=== PATIENT | male | born 1950 | race Caucasian/White ===

== ENCOUNTER 2016-05-02 20:45 | Inpatient (IN) | payer MEDICARE, BC ==
[~2016-05-02] VITALS: Ht 182.9 cm; Wt 66.0 kg
[~2016-05-02 20:45] MED LIST: ARMOUR THYROID60 MG PO; ATIVAN0.5 MG PO; AVELOX400 MG PO; BACTRIM DS 8001 TAB PO; BENADRYL25 M2 PO; CALCIUM 500500 M2 PT; CARDURA 2MG2 MG PO; CEFDINIR250 MG/5 M PEG; CEFEPIME1 G1 IV; CEFTAZIDIME; CEFTIN250 MG/5 M PO; CELEXA10 MG PO; CIPRO 500MG TA500 MG PO; CLEOCIN 751500 MG/10 PEG; CLEOCIN HC150 MG/CAP PO; COPAXONE; CORGARD 40M40 MG/TAB PO; CORGARD20 MG PO; CORGARD40 MG PO; DARVOCET N 101 UDTAB PO; DEPAKENE 250 MG/1 ML PEG; DEPAKOTE 250MG250 MG PO; DEPAKOTE DR500 MG PO; DEPAKOTE ER 50500 MG PO; DEPAKOTE500 M2 PO; DIGESTIVE ENZYM1 TAB PO; DOXYCYCLINE 10100 MG PO; FAMILY PHARMACY99 MG PT; FIORICET W/CODE1 CA1 PO; LABETALOL; LEVAQUIN 2250 MG/TAB PO; LEVAQUIN 250MG250 MG PO; LEVAQUIN 5500 MG/101 IV; LEVAQUIN 5500 MG/TA1 PEG; LEVAQUIN 5500 MG/TA1 PO; LEVAQUIN 5500 MG/TAB PO; LEVAQUIN 750MG750 M1 PO; LEVAQUIN 7750 MG/151 IV; MILK THISTLE150 MG PO; MULTIPLE VITAMI1 CAP PO; MVI PO; NADOLOL PO; NADOLOL20 MG PO; PHENERGAN 25 TA25 MG PO; PIPERACILLIN IV; ROBINUL1 MG PO; SEPTRA DS 8001 TAB PO; SILYMARIN1 POW PT; TAZOBACTAM IV; THYROID PO; TRAMADOL50 MG PO; TRANSDERM-0.5 MG/21 TD; TYLENOL 325MG325 MG PO; TYLENOL 500MG500 MG PO; VALPROIC ACID250 MG PO; VIT B-6100 MG PO; VITAMIN B COMPL1 SGL PT; VITAMIN C500 MG PT; VITAMIN D32000 I1 PO; VITAMIN D5000 IU PT; Z-BEC1 TAB PO; ZANTAC150 MG PO; ZINC10 M1 PT; ZOCOR 20MG20 MG PO; [UNRECOGNIZED DRUG - CODE] PO; [UNRECOGNIZED DRUG - OTHER] PEG; [UNRECOGNIZED DRUG - OTHER] PO; [UNRECOGNIZED DRUG - OTHER] PT
[2016-05-02 21:49] LABS: BASO % 0.3 % (0.0-2.0); EOS # 0.1 (0.0-0.7); EOS % 0.8 % (0-4.0); GRAN # 8.1 (1.4-6.5); HEMATOCRIT 43.5 % (42.0-52.0); HEMOGLOBIN 15.3 g/dl (13.5-18.0); LYMPH % 25.1 % (20.0-51.0); MEAN CELL VOLUME 88 fl (80.0-100.0); MEAN CORPUSCULAR HEMOGLOBIN 31 pg (27.0-31.0); MEAN CORPUSCULAR HGB CONC 35 g/dl (33.0-37.0); MEAN PLATELET VOLUME 9.2 fl (7.4-10.4); MONO # 0.7 (0.1-0.6); MONO % 5.5 % (1.7-9.3); PLATELET COUNT 196 K/mm3 (130-400); RED BLOOD COUNT 4.92 M/mm3 (4.20-5.60); REDCELL DISTRIBUTION WIDTH-CV 11.9 % (11.5-14.5); WHITE BLOOD COUNT 11.9 K/mm3 (4.8-10.8)
[2016-05-02 22:00] LABS: PH 8 (5-8); SQUAMOUS EPITHELIAL 0-2 /hpf; URINE APPEARANCE Cloudy; URINE BACTERIA Rare /hpf; URINE BILIRUBIN Negative (NEGATIVE); URINE BLOOD Negative (NEGATIVE); URINE COLOR Yellow; URINE GLUCOSE Negative (NEGATIVE); URINE KETONE Negative (NEGATIVE); URINE RBC 0-2 /hpf; URINE UROBILINOGEN Negative (NEGATIVE)
[2016-05-02 22:03] LABS: ADJUSTED CALCIUM 10.1 mg/dL (8.4-10.2); ALBUMIN 3.8 gm/dL (3.5-5.0); BILIRUBIN,TOTAL 1.5 mg/dL (0.0-1.0); C-REACTIVE PROTEIN 3.9 mg/dL (0.0-0.9); CALCIUM 9.9 mg/dL (8.4-10.2); CREATININE, serum 0.72 mg/dL (0.66-1.25); POTASSIUM 4.1 mmol/L (3.4-5.0); TOTAL PROTEIN 7.5 gm/dL (6.4-8.2)
[2016-05-02] MEDS ORDERED: GLUTATHIONE1 POW PEG (23:16)
[2016-05-02] MEDS ORDERED: MERIBIN5 MG PEG (23:18)
[2016-05-03] VITALS (7 sets, daily range): BP systolic 108–135; BP diastolic 62–92; PULSE 62–109; TEMP 97.2–99.4
[2016-05-03 04:51] LABS: BASO % 0.3 % (0.0-2.0); EOS # 0.1 (0.0-0.7); EOS % 0.6 % (0-4.0); GRAN # 6.8 (1.4-6.5); GRAN % 64.3 % (42.2-75.2); HEMOGLOBIN 14.1 g/dl (13.5-18.0); LYMPH # 2.9 (1.2-3.4); LYMPH % 27.4 % (20.0-51.0); MEAN CELL VOLUME 90 fl (80.0-100.0); MEAN CORPUSCULAR HEMOGLOBIN 31 pg (27.0-31.0); MEAN CORPUSCULAR HGB CONC 34 g/dl (33.0-37.0); MEAN PLATELET VOLUME 9.8 fl (7.4-10.4); MONO # 0.8 (0.1-0.6); MONO % 7.1 % (1.7-9.3); PLATELET COUNT 208 K/mm3 (130-400); RED BLOOD COUNT 4.58 M/mm3 (4.20-5.60); REDCELL DISTRIBUTION WIDTH-CV 11.9 % (11.5-14.5); WHITE BLOOD COUNT 10.6 K/mm3 (4.8-10.8)
[2016-05-03 05:36] LABS: CALCIUM 9.3 mg/dL (8.4-10.2); CREATININE, serum 0.54 mg/dL (0.66-1.25); POTASSIUM 3.9 mmol/L (3.4-5.0)
[2016-05-04 05:12] VITALS: BP 90/77; PULSE 82; TEMP 99.8
[2016-05-04 08:24] VITALS: BP 109/72; PULSE 75; TEMP 98.5
[2016-05-04 11:13] VITALS: BP 107/75; PULSE 73; TEMP 98.3
[2016-05-04 15:57] VITALS: BP 127/84; PULSE 58; TEMP 98.4
[2016-05-04] MEDS ORDERED: CLEOCIN 751500 MG/10 PEG (16:53)
== END 2016-05-04 18:00 | disposition home or self-care (01) | DRG 689 ==
LOC: COL.ER 20:45 → MEDICAL 22:30
PROVIDERS: Emergency Medicine; Internal Medicine
DX: N39.0 Urinary tract infection, site not specified (principal); J69.0 Pneumonitis due to inhalation of food and vomit; G35 Multiple sclerosis; N31.9 Neuromuscular dysfunction of bladder, unspecified; I10 Essential (primary) hypertension; E03.9 Hypothyroidism, unspecified; G40.909 Epilepsy, unspecified, not intractable, without status epilepticus; R53.81 Other malaise; Z93.1 Gastrostomy status; Z87.891 Personal history of nicotine dependence
CPT/HCPCS: 99222-AI; 99232-AI; 99239; J0696; J0744; J1650; J1956; J7030

== ENCOUNTER 2016-05-12 19:41 | Emergency (ER) | payer MEDICARE, BC ==
[~2016-05-12] VITALS: Ht 182.9 cm; Wt 65.0 kg
[~2016-05-12 19:41] MED LIST changes: +GLUTATHIONE1 POW PEG; +MERIBIN5 MG PEG
[2016-05-12 19:46] VITALS: BP 143/98; TEMP 98.5
[2016-05-12 20:41] VITALS: PULSE 80
== END 2016-05-12 20:42 | disposition home or self-care (01) ==
LOC: COL.ER 19:41
DX: Z43.1 Encounter for attention to gastrostomy (principal); Z46.59 Encounter for fitting and adjustment of other gastrointestinal appliance and device

== ENCOUNTER 2016-07-14 17:38 | Emergency (ER) | payer MEDICARE, BC ==
[~2016-07-14] VITALS: Ht 162.6 cm; Wt 65.9 kg
[2016-07-14 17:41] VITALS: BP 137/81; TEMP 97.6
[2016-07-14 19:19] LABS: BASO % 0.5 % (0.0-2.0); EOS # 0.1 (0.0-0.7); GRAN # 4.4 (1.4-6.5); GRAN % 55.8 % (42.2-75.2); HEMATOCRIT 43.9 % (42.0-52.0); HEMOGLOBIN 14.9 g/dl (13.5-18.0); LYMPH # 2.9 (1.2-3.4); LYMPH % 36.6 % (20.0-51.0); MEAN CELL VOLUME 90 fl (80.0-100.0); MEAN CORPUSCULAR HEMOGLOBIN 31 pg (27.0-31.0); MEAN CORPUSCULAR HGB CONC 34 g/dl (33.0-37.0); MEAN PLATELET VOLUME 9.6 fl (7.4-10.4); MONO # 0.5 (0.1-0.6); MONO % 5.8 % (1.7-9.3); PLATELET COUNT 174 K/mm3 (130-400); RED BLOOD COUNT 4.86 M/mm3 (4.20-5.60); REDCELL DISTRIBUTION WIDTH-CV 12.6 % (11.5-14.5); WHITE BLOOD COUNT 7.8 K/mm3 (4.8-10.8)
[2016-07-14 19:58] LABS: CALCIUM 9.5 mg/dL (8.4-10.2); CREATININE, serum 0.69 mg/dL (0.66-1.25); POTASSIUM 4.1 mmol/L (3.4-5.0)
[2016-07-14 19:59] VITALS: PULSE 54
== END 2016-07-14 20:55 | disposition home or self-care (01) ==
LOC: COL.ER 17:38
PROVIDERS: Emergency Medicine
DX: R51 Headache (principal); G35 Multiple sclerosis; R09.89 Other specified symptoms and signs involving the circulatory and respiratory systems

== ENCOUNTER → 2016-10-25 | Outpatient (CLI) | payer MEDICARE, BC ==
[~2016-10-25] MED LIST changes: +COLLAGEN PEG; +MAGNESIUM PEG; +MULTI VITAMINS1 TAB PO; +MULTIZYME PEG; +OMEGA 3 PEG; +OMNICEF 300MG300 MG PO; +VITAMIN D3 PEG; +ZINC PEG; +[UNRECOGNIZED DRUG - OTHER] PEG; +[UNRECOGNIZED DRUG - OTHER] PEG; +[UNRECOGNIZED DRUG - OTHER] PEG
== END ==
LOC: COL.RAD 10:40
DX: N28.1 Cyst of kidney, acquired (principal); N21.0 Calculus in bladder
CPT/HCPCS: Q9967

== ENCOUNTER 2016-11-20 07:45 | Day surgery (SDC) | payer MEDICARE, BC ==
[~2016-11-20] VITALS: Ht 182.9 cm; Wt 65.9 kg
[~2016-11-20 07:45] MED LIST changes: -COLLAGEN PEG; -MAGNESIUM PEG; -MULTI VITAMINS1 TAB PO; -MULTIZYME PEG; -OMEGA 3 PEG; -OMNICEF 300MG300 MG PO; -VITAMIN D3 PEG; -ZINC PEG; -[UNRECOGNIZED DRUG - OTHER] PEG; -[UNRECOGNIZED DRUG - OTHER] PEG; -[UNRECOGNIZED DRUG - OTHER] PEG
[2016-11-20] MEDS ORDERED: MULTIZYME PEG (08:33)
[2016-11-20] MEDS ORDERED: [UNRECOGNIZED DRUG - OTHER] PEG (08:34)
[2016-11-20] MEDS ORDERED: COLLAGEN PEG (08:47)
[2016-11-20] MEDS ORDERED: OMEGA 3 PEG (08:48)
[2016-11-20] MEDS ORDERED: VITAMIN D3 PEG (08:50)
[2016-11-20] MEDS ORDERED: ZINC PEG (08:51)
[2016-11-20] MEDS ORDERED: MULTI VITAMINS1 TAB PO (08:52)
[2016-11-20] MEDS ORDERED: [UNRECOGNIZED DRUG - OTHER] PEG (08:53)
[2016-11-20] MEDS ORDERED: [UNRECOGNIZED DRUG - OTHER] PEG (08:53)
[2016-11-20] MEDS ORDERED: MAGNESIUM PEG (08:56)
[2016-11-20 09:30] VITALS: BP 132/61; PULSE 51; TEMP 97.4
== END 2016-11-20 11:10 | disposition home or self-care (01) ==
LOC: SDCO 07:45
DX: N21.0 Calculus in bladder (principal); R33.9 Retention of urine, unspecified; N31.9 Neuromuscular dysfunction of bladder, unspecified; G35 Multiple sclerosis; I10 Essential (primary) hypertension; A28.1 Cat-scratch disease; N52.9 Male erectile dysfunction, unspecified; Z87.891 Personal history of nicotine dependence

== ENCOUNTER 2016-12-28 10:00 | Emergency (ER) | payer MEDICARE, BC ==
[~2016-12-28] VITALS: Ht 182.9 cm; Wt 65.9 kg
[~2016-12-28 10:00] MED LIST changes: +COLLAGEN PEG; +MAGNESIUM PEG; +MULTI VITAMINS1 TAB PO; +MULTIZYME PEG; +OMEGA 3 PEG; +VITAMIN D3 PEG; +ZINC PEG; +[UNRECOGNIZED DRUG - OTHER] PEG; +[UNRECOGNIZED DRUG - OTHER] PEG; +[UNRECOGNIZED DRUG - OTHER] PEG
[2016-12-28 10:08] VITALS: TEMP 99.2
[2016-12-28 11:15] LABS: BASO % 0.3 % (0.0-2.0); EOS % 0.1 % (0-4.0); GRAN # 11.6 (1.4-6.5); GRAN % 73.3 % (42.2-75.2); HEMATOCRIT 43.1 % (42.0-52.0); HEMOGLOBIN 14.6 g/dl (13.5-18.0); LYMPH # 2.9 (1.2-3.4); LYMPH % 18.1 % (20.0-51.0); MEAN CELL VOLUME 91 fl (80.0-100.0); MEAN CORPUSCULAR HEMOGLOBIN 31 pg (27.0-31.0); MEAN CORPUSCULAR HGB CONC 34 g/dl (33.0-37.0); MEAN PLATELET VOLUME 9.6 fl (7.4-10.4); MONO # 1.2 (0.1-0.6); MONO % 7.8 % (1.7-9.3); PLATELET COUNT 152 K/mm3 (130-400); RED BLOOD COUNT 4.76 M/mm3 (4.20-5.60); REDCELL DISTRIBUTION WIDTH-CV 12.2 % (11.5-14.5); WHITE BLOOD COUNT 15.8 K/mm3 (4.8-10.8)
[2016-12-28 11:19] LABS: ADJUSTED CALCIUM 9.7 mg/dL (8.4-10.2); ALBUMIN 3.5 gm/dL (3.5-5.0); CALCIUM 9.3 mg/dL (8.4-10.2); CREATININE, serum 0.67 mg/dL (0.66-1.25); POTASSIUM 3.8 mmol/L (3.4-5.0)
[2016-12-28 12:20] LABS: PH 7 (5-8); SQUAMOUS EPITHELIAL None Seen /hpf; URINE APPEARANCE Clear; URINE BACTERIA None Seen /hpf; URINE BILIRUBIN Negative (NEGATIVE); URINE BLOOD Negative (NEGATIVE); URINE COLOR Yellow; URINE GLUCOSE Negative (NEGATIVE); URINE KETONE Negative (NEGATIVE); URINE RBC 0-2 /hpf; URINE UROBILINOGEN Negative (NEGATIVE)
[2016-12-28] MEDS ORDERED: LEVAQUIN 5500 MG/TA1 PO (13:57)
[2016-12-28] MEDS ORDERED: OMNICEF 300MG300 MG PO (14:15)
[2016-12-28 14:35] VITALS: BP 133/82; PULSE 67
== END 2016-12-28 14:35 | disposition home or self-care (01) ==
LOC: COL.ER 10:00
PROVIDERS: Emergency Medicine
DX: N39.0 Urinary tract infection, site not specified (principal); I10 Essential (primary) hypertension; G35 Multiple sclerosis
CPT/HCPCS: J1956; J7040

== ENCOUNTER 2017-01-09 11:56 | Emergency (ER) | payer MEDICARE, BC ==
[~2017-01-09] VITALS: Ht 182.9 cm; Wt 68.2 kg
[~2017-01-09 11:56] MED LIST changes: +OMNICEF 300MG300 MG PO
[2017-01-09 11:57] VITALS: TEMP 98.5
[2017-01-09 12:32] LABS: BASO % 0.5 % (0.0-2.0); EOS # 0.1 (0.0-0.7); EOS % 0.8 % (0-4.0); GRAN # 5.3 (1.4-6.5); GRAN % 62.5 % (42.2-75.2); HEMATOCRIT 42.5 % (42.0-52.0); HEMOGLOBIN 14.7 g/dl (13.5-18.0); LYMPH # 2.5 (1.2-3.4); LYMPH % 29.5 % (20.0-51.0); MEAN CELL VOLUME 89 fl (80.0-100.0); MEAN CORPUSCULAR HEMOGLOBIN 31 pg (27.0-31.0); MEAN CORPUSCULAR HGB CONC 35 g/dl (33.0-37.0); MEAN PLATELET VOLUME 9.2 fl (7.4-10.4); MONO # 0.5 (0.1-0.6); MONO % 6.3 % (1.7-9.3); PLATELET COUNT 177 K/mm3 (130-400); RED BLOOD COUNT 4.76 M/mm3 (4.20-5.60); REDCELL DISTRIBUTION WIDTH-CV 12.2 % (11.5-14.5); WHITE BLOOD COUNT 8.5 K/mm3 (4.8-10.8)
[2017-01-09 12:46] LABS: ADJUSTED CALCIUM 9.7 mg/dL (8.4-10.2); ALANINE AMINOTRANSFERASE 19 U/L (21-72); ALBUMIN 3.5 gm/dL (3.5-5.0); ALKALINE PHOSPHATASE 85 U/L (50-136); ANION GAP 9 mmol/L (7-16); BILIRUBIN,TOTAL 1.3 mg/dL (0.0-1.0); BLOOD UREA NITROGEN 9 mg/dL (9-20); CALCIUM 9.3 mg/dL (8.4-10.2); CARBON DIOXIDE 26 mmol/L (22-30); CHLORIDE 103 mmol/L (98-107); CREATININE, serum 0.59 mg/dL (0.66-1.25); GLUCOSE 95 mg/dL (74-106); POTASSIUM 3.7 mmol/L (3.4-5.0); SODIUM 138 mmol/L (137-145); TOTAL PROTEIN 6.9 gm/dL (6.4-8.2)
[2017-01-09 12:50] LABS: C-REACTIVE PROTEIN < 0.5 mg/dL (0.0-0.9)
[2017-01-09 13:03] LABS: PROLACTIN < 1.4 ng/mL (3.7-17.9)
[2017-01-09 13:08] LABS: PH 6 (5-8); SQUAMOUS EPITHELIAL 0-2 /hpf; URINE APPEARANCE Clear; URINE BACTERIA None Seen /hpf; URINE BILIRUBIN Negative (NEGATIVE); URINE BLOOD Negative (NEGATIVE); URINE COLOR Yellow; URINE GLUCOSE Negative (NEGATIVE); URINE KETONE Negative (NEGATIVE); URINE RBC 0-2 /hpf; URINE UROBILINOGEN Negative (NEGATIVE); URINE WBC 0-2 /hpf
[2017-01-09 15:15] VITALS: BP 107/67; PULSE 57
== END 2017-01-09 17:31 | disposition home or self-care (01) ==
LOC: COL.ER 11:56
PROVIDERS: Emergency Medicine
DX: G35 Multiple sclerosis (principal); R42 Dizziness and giddiness; R51 Headache; G40.909 Epilepsy, unspecified, not intractable, without status epilepticus; Z99.3 Dependence on wheelchair; Z93.1 Gastrostomy status
CPT/HCPCS: J2060; J7030

== ENCOUNTER 2017-02-28 16:42 | Emergency (ER) | payer MEDICARE, BC ==
[2017-02-28 16:43] VITALS: TEMP 97.4
[2017-02-28 17:46] VITALS: BP 144/77; PULSE 48
== END 2017-02-28 17:33 | disposition home or self-care (01) ==
LOC: COL.ER 16:42
DX: K94.23 Gastrostomy malfunction (principal); N18.6 End stage renal disease

== ENCOUNTER 2017-03-02 13:19 | Inpatient (IN) | payer MEDICARE, BC ==
[2017-03-02] VITALS (331 sets, daily range): BP systolic 103–114; BP diastolic 58–71; PULSE 79; TEMP 98–99.8; O2SAT 84–100
[~2017-03-02] VITALS: Ht 182.9 cm; Wt 62.0 kg
[2017-03-02 15:23] LABS: HEMATOCRIT 45.6 % (42.0-52.0); HEMOGLOBIN 15.6 g/dl (13.5-18.0); MEAN CELL VOLUME 92 fl (80.0-100.0); MEAN CORPUSCULAR HEMOGLOBIN 32 pg (27.0-31.0); MEAN CORPUSCULAR HGB CONC 34 g/dl (33.0-37.0); MEAN PLATELET VOLUME 9.3 fl (7.4-10.4); PLATELET COUNT 136 K/mm3 (130-400); RED BLOOD COUNT 4.94 M/mm3 (4.20-5.60); WHITE BLOOD COUNT 17.3 K/mm3 (4.8-10.8)
[2017-03-02 15:24] LABS: ADD PATHOLOGY DIFF REVIEW NO
[2017-03-02 15:33] LABS: ADJUSTED CALCIUM 9.8 mg/dL (8.4-10.2); ALANINE AMINOTRANSFERASE 21 U/L (21-72); ALBUMIN 3.8 gm/dL (3.5-5.0); ALKALINE PHOSPHATASE 97 U/L (50-136); ANION GAP 10 mmol/L (7-16); BILIRUBIN,TOTAL 1.6 mg/dL (0.0-1.0); BLOOD UREA NITROGEN 9 mg/dL (9-20); CALCIUM 9.6 mg/dL (8.4-10.2); CARBON DIOXIDE 24 mmol/L (22-30); CHLORIDE 102 mmol/L (98-107); CREATININE, serum 0.76 mg/dL (0.66-1.25); GLUCOSE 110 mg/dL (74-106); SODIUM 136 mmol/L (137-145)
[2017-03-02 15:39] LABS: BAND 10 % (0-10); LYMPHOCYTE 6 % (20.0-51.0); NEUTROPHILS 75 % (42.0-75.2); PLATELET ESTIMATE NORMAL (NORMAL); TOTAL CELLS COUNTED 100
[2017-03-02 16:11] LABS: COLLECTION METHOD CATHETER
[2017-03-02 16:16] LABS: MUCOUS Present /lpf; PH 7 (5-8); SQUAMOUS EPITHELIAL 0-2 /hpf; URINE APPEARANCE Clear; URINE BACTERIA None Seen /hpf; URINE BILIRUBIN Negative (NEGATIVE); URINE BLOOD Negative (NEGATIVE); URINE COLOR Yellow; URINE GLUCOSE Negative (NEGATIVE); URINE KETONE Trace (NEGATIVE); URINE LEUKOCYTE ESTERASE Negative (NEGATIVE); URINE PROTEIN(semi-quant) Negative (NEGATIVE); URINE RBC 0-2 /hpf; URINE UROBILINOGEN >=4.0 mg/dL (NEGATIVE); URINE WBC 0-2 /hpf
[2017-03-02] MEDS ORDERED: SUSTAIN (18:00)
[2017-03-02] MEDS ORDERED: PROBIOTIC-10 (18:01)
[2017-03-02 19:33] LABS: TROPONIN-I < 0.012 ng/mL (0.000-0.034)
[2017-03-03] VITALS (834 sets, daily range): BP systolic 102–130; BP diastolic 52–75; PULSE 52–67; TEMP 97.2–100.5; O2SAT 64–100
[2017-03-03 07:30] LABS: HEMATOCRIT 39.2 % (42.0-52.0); MEAN CELL VOLUME 92 fl (80.0-100.0); MEAN CORPUSCULAR HEMOGLOBIN 32 pg (27.0-31.0); MEAN CORPUSCULAR HGB CONC 35 g/dl (33.0-37.0); MEAN PLATELET VOLUME 9.5 fl (7.4-10.4); PLATELET COUNT 101 K/mm3 (130-400); RED BLOOD COUNT 4.27 M/mm3 (4.20-5.60); WHITE BLOOD COUNT 12.8 K/mm3 (4.8-10.8)
[2017-03-03 07:37] LABS: CALCIUM 8.9 mg/dL (8.4-10.2); CREATININE, serum 0.59 mg/dL (0.66-1.25); POTASSIUM 3.8 mmol/L (3.4-5.0)
[2017-03-03 07:48] LABS: ADD PATHOLOGY DIFF REVIEW NO; HEMOGLOBIN 13.6 g/dl (13.5-18.0)
[2017-03-03 08:15] LABS: BAND 15 % (0-10); LYMPHOCYTE 7 % (20.0-51.0); NEUTROPHILS 78 % (42.0-75.2); PLATELET ESTIMATE DECREASED (NORMAL); TOTAL CELLS COUNTED 100
[2017-03-04] VITALS (7 sets, daily range): BP systolic 115–136; BP diastolic 55–64; PULSE 54–76; TEMP 97–98.4
[2017-03-04 10:44] LABS: BASO % 0.1 % (0.0-2.0); GRAN # 11.5 (1.4-6.5); GRAN % 88.1 % (42.2-75.2); HEMATOCRIT 38.6 % (42.0-52.0); HEMOGLOBIN 13.2 g/dl (13.5-18.0); LYMPH % 7.9 % (20.0-51.0); MEAN CELL VOLUME 92 fl (80.0-100.0); MEAN CORPUSCULAR HEMOGLOBIN 32 pg (27.0-31.0); MEAN CORPUSCULAR HGB CONC 34 g/dl (33.0-37.0); MEAN PLATELET VOLUME 10.3 fl (7.4-10.4); MONO # 0.4 (0.1-0.6); MONO % 3.1 % (1.7-9.3); PLATELET COUNT 108 K/mm3 (130-400); RED BLOOD COUNT 4.19 M/mm3 (4.20-5.60); WHITE BLOOD COUNT 13.1 K/mm3 (4.8-10.8)
[2017-03-05 03:55] VITALS: BP 136/63; PULSE 58
[2017-03-05 06:45] LABS: BASO % 0.1 % (0.0-2.0); GRAN # 10.1 (1.4-6.5); GRAN % 81.5 % (42.2-75.2); HEMOGLOBIN 12.2 g/dl (13.5-18.0); LYMPH # 1.8 (1.2-3.4); LYMPH % 14.1 % (20.0-51.0); MEAN CELL VOLUME 92 fl (80.0-100.0); MEAN CORPUSCULAR HEMOGLOBIN 31 pg (27.0-31.0); MEAN CORPUSCULAR HGB CONC 34 g/dl (33.0-37.0); MEAN PLATELET VOLUME 10.8 fl (7.4-10.4); MONO # 0.5 (0.1-0.6); MONO % 3.8 % (1.7-9.3); PLATELET COUNT 116 K/mm3 (130-400); RED BLOOD COUNT 3.89 M/mm3 (4.20-5.60); WHITE BLOOD COUNT 12.4 K/mm3 (4.8-10.8)
[2017-03-05 06:49] LABS: HEMATOCRIT 35.7 % (42.0-52.0)
[2017-03-05 07:05] LABS: CALCIUM 8.6 mg/dL (8.4-10.2); CREATININE, serum 0.6 mg/dL (0.66-1.25); POTASSIUM 3.2 mmol/L (3.4-5.0)
[2017-03-05 08:37] VITALS: BP 122/62; PULSE 55; TEMP 97.8
[2017-03-05] MEDS ORDERED: ZITHROMAX 250M250 MG PEG (11:15)
[2017-03-05] MEDS ORDERED: CLEOCIN 751500 MG/10 PEG (11:18)
== END 2017-03-05 14:21 | disposition home health service (06) | DRG 871 ==
LOC: COL.ER 13:19 → ICU 16:40 → MEDICAL 16:40
PROVIDERS: Emergency Medicine; Internal Medicine; Physician Assistant
DX: A41.9 Sepsis, unspecified organism (principal); J69.0 Pneumonitis due to inhalation of food and vomit; R47.01 Aphasia; G40.209 Localization-related (focal) (partial) symptomatic epilepsy and epileptic syndromes with complex partial seizures, not intractable, without status epilepticus; T80.1XXA Vascular complications following infusion, transfusion and therapeutic injection, initial encounter; I80.8 Phlebitis and thrombophlebitis of other sites; G35 Multiple sclerosis; I10 Essential (primary) hypertension; D69.6 Thrombocytopenia, unspecified; E03.9 Hypothyroidism, unspecified; R13.10 Dysphagia, unspecified; Z87.891 Personal history of nicotine dependence; Z99.3 Dependence on wheelchair; Z93.1 Gastrostomy status
CPT/HCPCS: 99223-AI; 99232-AI; 99239; A4314; J0692; J1650; J2930; J3370; J7030; J7050

== ENCOUNTER 2017-03-07 12:18 | Emergency (ER) | payer MEDICARE, BC ==
[~2017-03-07 12:18] MED LIST changes: +PROBIOTIC-10; +SUSTAIN; +ZITHROMAX 250M250 MG PEG
[2017-03-07 12:21] VITALS: TEMP 98.1
[2017-03-07 13:17] LABS: HEMATOCRIT 38.3 % (42.0-52.0); HEMOGLOBIN 13.1 g/dl (13.5-18.0); MEAN CELL VOLUME 92 fl (80.0-100.0); MEAN CORPUSCULAR HEMOGLOBIN 32 pg (27.0-31.0); MEAN CORPUSCULAR HGB CONC 34 g/dl (33.0-37.0); MEAN PLATELET VOLUME 9.6 fl (7.4-10.4); PLATELET COUNT 151 K/mm3 (130-400); RED BLOOD COUNT 4.16 M/mm3 (4.20-5.60)
[2017-03-07 13:18] LABS: ADD PATHOLOGY DIFF REVIEW NO
[2017-03-07 13:22] LABS: PROTHROMBIN TIME 11.5 SECONDS (9.7-12.8)
[2017-03-07 13:27] LABS: ADJUSTED CALCIUM 9.8 mg/dL (8.4-10.2); ALANINE AMINOTRANSFERASE 25 U/L (21-72); ALBUMIN 2.9 gm/dL (3.5-5.0); ALKALINE PHOSPHATASE 76 U/L (50-136); ANION GAP 6 mmol/L (7-16); BILIRUBIN,TOTAL 0.9 mg/dL (0.0-1.0); BLOOD UREA NITROGEN 9 mg/dL (9-20); C-REACTIVE PROTEIN 1.7 mg/dL (0.0-0.9); CALCIUM 8.9 mg/dL (8.4-10.2); CARBON DIOXIDE 28 mmol/L (22-30); CHLORIDE 102 mmol/L (98-107); CREATININE, serum 0.71 mg/dL (0.66-1.25); GLUCOSE 79 mg/dL (74-106); POTASSIUM 3.3 mmol/L (3.4-5.0); SODIUM 136 mmol/L (137-145); TOTAL PROTEIN 5.9 gm/dL (6.4-8.2)
[2017-03-07 13:27] LABS: COLLECTION METHOD CATHETER
[2017-03-07 13:35] LABS: MUCOUS Present /lpf; PH 7 (5-8); SQUAMOUS EPITHELIAL None Seen /hpf; URINE APPEARANCE Hazy; URINE BACTERIA Rare /hpf; URINE BILIRUBIN Negative (NEGATIVE); URINE BLOOD 3+ (NEGATIVE); URINE CALCIUM OXALATE CRYSTAL Present /hpf; URINE COLOR Yellow; URINE GLUCOSE Negative (NEGATIVE); URINE KETONE Negative (NEGATIVE); URINE LEUKOCYTE ESTERASE Negative (NEGATIVE); URINE PROTEIN(semi-quant) 1+ (NEGATIVE); URINE RBC >50 /hpf; URINE UROBILINOGEN Negative (NEGATIVE)
[2017-03-07 14:05] LABS: BAND 10 % (0-10); EOSINOPHIL 2 % (0-4); LYMPHOCYTE 41 % (20.0-51.0); NEUTROPHILS 46 % (42.0-75.2); PLATELET ESTIMATE NORMAL (NORMAL); TOTAL CELLS COUNTED 100
[2017-03-07 14:10] LABS: PROLACTIN 22.7 ng/mL (3.7-17.9)
[2017-03-07 14:19] LABS: TROPONIN-I < 0.012 ng/mL (0.000-0.034)
[2017-03-07] MEDS ORDERED: LEVAQUIN 5500 MG/TA1 PEG (14:34)
[2017-03-07] MEDS ORDERED: ANTIVERT 25MG25 MG PEG (14:34)
[2017-03-07 16:01] VITALS: BP 127/86; PULSE 60
== END 2017-03-07 16:14 | disposition home or self-care (01) ==
LOC: COL.ER 12:18
PROVIDERS: Emergency Medicine
DX: J69.0 Pneumonitis due to inhalation of food and vomit (principal); R42 Dizziness and giddiness; N39.0 Urinary tract infection, site not specified; J01.90 Acute sinusitis, unspecified; G40.909 Epilepsy, unspecified, not intractable, without status epilepticus; G35 Multiple sclerosis
CPT/HCPCS: J1956; J7030

== ENCOUNTER 2017-03-13 14:12 | Emergency (ER) | payer MEDICARE, BC ==
[~2017-03-13] VITALS: Wt 62.3 kg
[~2017-03-13 14:12] MED LIST changes: +ANTIVERT 25MG25 MG PEG
[2017-03-13 14:14] VITALS: TEMP 98.7
[2017-03-13] MEDS ORDERED: KEPPRA SUSP100 MG/ML PEG (14:22)
[2017-03-13 15:27] LABS: ADJUSTED CALCIUM 9.9 mg/dL (8.4-10.2); ALBUMIN 3.2 gm/dL (3.5-5.0); BILIRUBIN,TOTAL 0.9 mg/dL (0.0-1.0); CALCIUM 9.3 mg/dL (8.4-10.2); CREATININE, serum 0.7 mg/dL (0.66-1.25); POTASSIUM 3.9 mmol/L (3.4-5.0); TOTAL PROTEIN 6.6 gm/dL (6.4-8.2)
[2017-03-13 15:34] LABS: BASO % 0.2 % (0.0-2.0); EOS # 0.1 (0.0-0.7); EOS % 0.6 % (0-4.0); GRAN # 4.3 (1.4-6.5); GRAN % 50.5 % (42.2-75.2); HEMATOCRIT 38.9 % (42.0-52.0); HEMOGLOBIN 13.2 g/dl (13.5-18.0); LYMPH # 3.4 (1.2-3.4); LYMPH % 40.4 % (20.0-51.0); MEAN CELL VOLUME 93 fl (80.0-100.0); MEAN CORPUSCULAR HEMOGLOBIN 32 pg (27.0-31.0); MEAN CORPUSCULAR HGB CONC 34 g/dl (33.0-37.0); MEAN PLATELET VOLUME 8.9 fl (7.4-10.4); MONO # 0.7 (0.1-0.6); MONO % 7.7 % (1.7-9.3); PLATELET COUNT 185 K/mm3 (130-400); RED BLOOD COUNT 4.18 M/mm3 (4.20-5.60); WHITE BLOOD COUNT 8.4 K/mm3 (4.8-10.8)
[2017-03-13 16:01] LABS: COLLECTION METHOD CLEAN CATCH
[2017-03-13 16:07] LABS: PH 7 (5-8); SQUAMOUS EPITHELIAL 0-2 /hpf; URINE APPEARANCE Clear; URINE BACTERIA None Seen /hpf; URINE BILIRUBIN Negative (NEGATIVE); URINE BLOOD Negative (NEGATIVE); URINE COLOR Yellow; URINE GLUCOSE Negative (NEGATIVE); URINE KETONE Trace (NEGATIVE); URINE LEUKOCYTE ESTERASE Negative (NEGATIVE); URINE PROTEIN(semi-quant) Negative (NEGATIVE); URINE RBC 0-2 /hpf; URINE UROBILINOGEN Negative (NEGATIVE); URINE WBC 0-2 /hpf
[2017-03-13 16:55] VITALS: BP 110/96; PULSE 53
== END 2017-03-13 16:57 | disposition home or self-care (01) ==
LOC: COL.ER 14:12
PROVIDERS: Emergency Medicine
DX: G40.909 Epilepsy, unspecified, not intractable, without status epilepticus (principal); G35 Multiple sclerosis; Z87.891 Personal history of nicotine dependence
CPT/HCPCS: J1953

== ENCOUNTER → 2017-03-19 | Outpatient (CLI) | payer MEDICARE, BC ==
[~2017-03-19] MED LIST changes: +KEPPRA SUSP100 MG/ML PEG
== END ==
LOC: COL.RAD 11:45
DX: G31.89 Other specified degenerative diseases of nervous system (principal); G93.89 Other specified disorders of brain; G35 Multiple sclerosis

== ENCOUNTER → 2017-03-22 | Outpatient (CLI) | payer MEDICARE, BC | LOC: COL.RAD 10:00 | DX: N28.1 Cyst of kidney, acquired (principal); N32.9 Bladder disorder, unspecified; N30.80 Other cystitis without hematuria; N21.0 Calculus in bladder | CPT/HCPCS: J7050; Q9967 ==

== ENCOUNTER → 2017-03-28 | Outpatient (CLI) | payer MEDICARE, BC | LOC: COL.CARD 09:15 | DX: R94.01 Abnormal electroencephalogram [EEG] (principal); Z87.39 Personal history of other diseases of the musculoskeletal system and connective tissue ==

== ENCOUNTER 2017-04-02 09:11 | Day surgery (SDC) | payer MEDICARE, BC ==
[~2017-04-02] VITALS: Wt 62.7 kg
[2017-04-02] MEDS ORDERED: BIOTIN PEG (10:13)
[2017-04-02] MEDS ORDERED: [UNRECOGNIZED DRUG - OTHER] PEG (10:15)
[2017-04-02] MEDS ORDERED: ACETAMINOPHEN PEG (10:33)
[2017-04-02 10:55] VITALS: BP 140/73; PULSE 55; TEMP 97.3
[2017-04-02 17:11] VITALS: BP 123/81; PULSE 49; TEMP 98.8
== END 2017-04-02 11:28 | disposition home or self-care (01) ==
LOC: SDCO 09:11
DX: N21.0 Calculus in bladder (principal); N31.9 Neuromuscular dysfunction of bladder, unspecified; I10 Essential (primary) hypertension; N52.9 Male erectile dysfunction, unspecified; Z90.49 Acquired absence of other specified parts of digestive tract; Z98.52 Vasectomy status; Z87.891 Personal history of nicotine dependence; Z87.440 Personal history of urinary (tract) infections; Z82.49 Family history of ischemic heart disease and other diseases of the circulatory system; Z82.3 Family history of stroke

== ENCOUNTER 2017-05-16 21:33 | Emergency (ER) | payer MEDICARE, BC ==
[~2017-05-16] VITALS: Ht 182.9 cm; Wt 63.6 kg
[~2017-05-16 21:33] MED LIST changes: +ACETAMINOPHEN PEG; +BIOTIN PEG
[2017-05-16 21:46] VITALS: BP 146/69; PULSE 63; TEMP 97.7
== END 2017-05-16 22:31 | disposition left against medical advice (07) ==
LOC: COL.ER 21:33
DX: R56.9 Unspecified convulsions (principal)

== ENCOUNTER 2017-10-23 22:14 | Inpatient (IN) | payer MEDICARE, BC ==
[~2017-10-23] VITALS: Ht 182.9 cm; Wt 69.6 kg
[~2017-10-23 22:14] MED LIST changes: -ACETAMINOPHEN PEG; +TYLENOL ELIX32 MG/M2 PEG
[2017-10-23 22:58] LABS: BASO % 0.2 % (0.0-2.0); EOS % 0.2 % (0-4.0); GRAN # 13.4 (1.4-6.5); GRAN % 80.7 % (42.2-75.2); HEMATOCRIT 43.7 % (42.0-52.0); HEMOGLOBIN 15.4 g/dl (13.5-18.0); LYMPH # 1.9 (1.2-3.4); LYMPH % 11.2 % (20.0-51.0); MEAN CELL VOLUME 89 fl (80.0-100.0); MEAN CORPUSCULAR HEMOGLOBIN 31 pg (27.0-31.0); MEAN CORPUSCULAR HGB CONC 35 g/dl (33.0-37.0); MONO # 1.2 (0.1-0.6); MONO % 7.3 % (1.7-9.3); PLATELET COUNT 143 K/mm3 (130-400); RED BLOOD COUNT 4.92 M/mm3 (4.20-5.60); REDCELL DISTRIBUTION WIDTH-CV 12.2 % (11.5-14.5)
[2017-10-23 23:08] LABS: CALCIUM 9.3 mg/dL (8.4-10.2); CREATININE, serum 0.52 mg/dL (0.66-1.25); POTASSIUM 3.9 mmol/L (3.4-5.0)
[2017-10-23 23:53] LABS: COLLECTION METHOD CATHETER
[2017-10-24] VITALS (7 sets, daily range): BP systolic 104–142; BP diastolic 56–79; PULSE 59–87; TEMP 97.4–98.6
[2017-10-24 00:10] LABS: AMORPHOUS CRYSTAL Present /uL; PH 8 (5-8); SQUAMOUS EPITHELIAL 0-2 /hpf; URINE APPEARANCE Cloudy; URINE BACTERIA None Seen /hpf; URINE BILIRUBIN Negative (NEGATIVE); URINE BLOOD Negative (NEGATIVE); URINE COLOR Yellow; URINE GLUCOSE Negative (NEGATIVE); URINE KETONE Negative (NEGATIVE); URINE LEUKOCYTE ESTERASE Negative (NEGATIVE); URINE NITRATE Negative (NEGATIVE); URINE PROTEIN(semi-quant) Negative (NEGATIVE); URINE UROBILINOGEN Negative (NEGATIVE)
[2017-10-25 02:52] VITALS: BP 126/61; PULSE 69; TEMP 98.4
[2017-10-25 06:48] LABS: BASO % 0.3 % (0.0-2.0); EOS # 0.1 (0.0-0.7); EOS % 1.4 % (0-4.0); GRAN # 4.9 (1.4-6.5); GRAN % 56.3 % (42.2-75.2); HEMATOCRIT 39.7 % (42.0-52.0); LYMPH % 34.8 % (20.0-51.0); MEAN CELL VOLUME 93 fl (80.0-100.0); MEAN CORPUSCULAR HEMOGLOBIN 31 pg (27.0-31.0); MEAN CORPUSCULAR HGB CONC 33 g/dl (33.0-37.0); MEAN PLATELET VOLUME 9.5 fl (7.4-10.4); MONO # 0.6 (0.1-0.6); MONO % 6.9 % (1.7-9.3); PLATELET COUNT 146 K/mm3 (130-400); RED BLOOD COUNT 4.25 M/mm3 (4.20-5.60); REDCELL DISTRIBUTION WIDTH-CV 12.4 % (11.5-14.5)
[2017-10-25 06:58] LABS: CALCIUM 8.6 mg/dL (8.4-10.2); CREATININE, serum 0.59 mg/dL (0.66-1.25); POTASSIUM 3.7 mmol/L (3.4-5.0)
[2017-10-25 07:13] VITALS: BP 118/65; PULSE 64; TEMP 98
[2017-10-25] MEDS ORDERED: CLEOCIN 751500 MG/10 PO (10:52)
[2017-10-25 11:52] VITALS: BP 127/63; PULSE 70; TEMP 98.5
== END 2017-10-25 15:00 | disposition home or self-care (01) | DRG 178 ==
LOC: COL.ER 22:14 → SURG 10-24 01:05
PROVIDERS: Emergency Medicine; Nurse Practitioner
DX: J69.0 Pneumonitis due to inhalation of food and vomit (principal); R47.01 Aphasia; G35 Multiple sclerosis; Z66 Do not resuscitate; I10 Essential (primary) hypertension; N31.9 Neuromuscular dysfunction of bladder, unspecified; R56.9 Unspecified convulsions; Z87.891 Personal history of nicotine dependence
CPT/HCPCS: 99223-AI; 99239; B4087; J0692; J7030; Q9967

== ENCOUNTER 2018-02-04 21:13 | Emergency (ER) | payer MEDICARE, BC ==
[~2018-02-04] VITALS: Ht 182.9 cm; Wt 68.2 kg
[~2018-02-04 21:13] MED LIST changes: +CLEOCIN 751500 MG/10 PO
[2018-02-04 21:17] VITALS: BP 150/80; TEMP 97.8
[2018-02-04 21:55] VITALS: PULSE 60
== END 2018-02-04 22:22 | disposition home or self-care (01) ==
LOC: COL.ER 21:13
DX: K94.23 Gastrostomy malfunction (principal); G35 Multiple sclerosis

== ENCOUNTER 2018-04-09 04:02 | Inpatient (IN) | payer MEDICARE, BC ==
[~2018-04-09] VITALS: Ht 182.9 cm; Wt 74.3 kg
[2018-04-09 05:09] LABS: BASO % 0.2 % (0.0-2.0); EOS # 0.1 (0.0-0.7); EOS % 0.5 % (0-4.0); GRAN % 78.3 % (42.2-75.2); HEMATOCRIT 49.6 % (42.0-52.0); HEMOGLOBIN 17.1 g/dl (13.5-18.0); LYMPH # 2.1 (1.2-3.4); LYMPH % 14.7 % (20.0-51.0); MEAN CELL VOLUME 92 fl (80.0-100.0); MEAN CORPUSCULAR HEMOGLOBIN 32 pg (27.0-31.0); MEAN CORPUSCULAR HGB CONC 35 g/dl (33.0-37.0); MEAN PLATELET VOLUME 9.4 fl (7.4-10.4); MONO # 0.9 (0.1-0.6); PLATELET COUNT 117 K/mm3 (130-400); RED BLOOD COUNT 5.42 M/mm3 (4.20-5.60); REDCELL DISTRIBUTION WIDTH-CV 12.1 % (11.5-14.5)
[2018-04-09 05:34] LABS: ALANINE AMINOTRANSFERASE 11 U/L (21-72); ALBUMIN 4.1 gm/dL (3.5-5.0); ALKALINE PHOSPHATASE 110 U/L (50-136); ANION GAP 7 mmol/L (7-16); AST,SGOT 27 U/L (15-37); BILIRUBIN,TOTAL 1.5 mg/dL (0.0-1.0); BLOOD UREA NITROGEN 12 mg/dL (9-20); CALCIUM 9.8 mg/dL (8.4-10.2); CARBON DIOXIDE 29 mmol/L (22-30); CHLORIDE 103 mmol/L (98-107); CREATININE, serum 0.71 mg/dL (0.66-1.25); GLUCOSE 98 mg/dL (74-106); POTASSIUM 4.6 mmol/L (3.4-5.0); SODIUM 140 mmol/L (137-145)
[2018-04-09 05:46] LABS: TROPONIN-I < 0.012 ng/mL (0.000-0.034)
[2018-04-09 06:17] LABS: PROTHROMBIN TIME 11.4 SECONDS (9.7-12.8)
--- NOTE | 2018-04-09 07:58 | NUR ---
REPORT RECEIVED FROM ED NURSE.
--- NOTE | 2018-04-09 08:38 | NUR ---
PATIENT ARRIVED TO ROOM 306.
[2018-04-09 09:13] VITALS: BP 152/88; PULSE 116; TEMP 103
[2018-04-09 10:16] LABS: COLLECTION METHOD CATHETER
[2018-04-09 10:22] LABS: PH 8 (5-8); SQUAMOUS EPITHELIAL None Seen /hpf; URINE APPEARANCE Clear; URINE BACTERIA None Seen /hpf; URINE BILIRUBIN Negative (NEGATIVE); URINE BLOOD Negative (NEGATIVE); URINE COLOR Yellow; URINE GLUCOSE Negative (NEGATIVE); URINE KETONE Negative (NEGATIVE); URINE LEUKOCYTE ESTERASE Negative (NEGATIVE); URINE NITRATE Negative (NEGATIVE); URINE PROTEIN(semi-quant) Negative (NEGATIVE); URINE UROBILINOGEN Negative (NEGATIVE); URINE WBC 0-2 /hpf
--- NOTE | 2018-04-09 11:00 | NUR ---
PATIENT RESTING IN BED AT THIS TIME WITH SPOUSE AT BEDSIDE.ASSESSMENT COMPLETE.PATIENT IS NON-VERBAL.CRACKLES TO BILAT LUNGS BASES.PATIENT HAS LEFT CHEST PORT THAT IS ACCESSED AND IVF INFUSING.G-TUBE PATENT.MEDICATION AND FOOD GIVEN THROUGH IT.PATIENT HAS CROWLEY CATHETER PLACED.PATENT AND DRAINING ADEQUATELY.PATIENT REPOSITIONED EVERY TWO HOURS.BOTTOM IS RED BUT NOT OPEN.LACTIC TRENDING DOWN FROM LAST RESULT.INT SUCTION PROVIDED.NO CONCERNS VOICED AT THIS TIME.WILL CONTINUE TO MONITOR,CALL LIGHT IN REACH
[2018-04-09 11:16] VITALS: TEMP 102
[2018-04-09 12:55] VITALS: BP 108/65; PULSE 101; TEMP 100.6
--- NOTE | 2018-04-09 16:46 | NUR ---
SW met with patient to discuss discharge planning. Patient lives in [place] with his Preeti. His PCP is Dr Beck Bartlett and he obtains his medications from [facility]. Patient does not have any anticipated discharge needs at this time. joseluis will continue to follow.
[2018-04-09 17:59] VITALS: BP 112/74; PULSE 98; TEMP 99.6
--- NOTE | 2018-04-09 18:02 | NUR ---
PATIENT HAD A FEVER EARLIER,PRN TYLENOL GIVEN.TEMP IMPROVED FROM 103 TO 99.6.WILL CONTINUE TO MONITOR.
--- NOTE | 2018-04-09 19:27 | NUR ---
THIS RN EXPLAINED THE NEED FOR SEIZURE PADS ON THE PATIENTS BED TO HIS BUT DECLINED.PATIENT HAS A HX OF SEIZURES. STATES SHE UNDERSTANDS THE NEED BUT SHE STATES"HE DOES NOT MOVE,I THINK HE WILL BE OKAY"NO OTHER CONCERNS VOICED AT THIS TIME.CALL LIGHT IN REACH
[2018-04-09 20:38] VITALS: BP 124/61; PULSE 103; TEMP 100.1
--- NOTE | 2018-04-09 22:14 | NUR ---
PT sleeping with at bedside. IV in hand is clean, n o redness no swelling. reports no pain. shift assessment complete. port assessed, no redness, no swelling, fluids running. pt and report no needs. call light in rewach
[2018-04-09 23:59] VITALS: BP 118/66; PULSE 92; TEMP 101
--- NOTE | 2018-04-10 01:00 | NUR ---
turning pt Q2H. currently on left side.
--- NOTE | 2018-04-10 03:19 | NUR ---
turned pt after two hours. pt has a red kiana about 2x2 inches on left hip/buttocks area. pt resting in with at bedside. no complains or needs at this time. call light in reach
[2018-04-10 03:47] VITALS: BP 122/69; PULSE 95; TEMP 101.3
--- NOTE | 2018-04-10 05:04 | NUR ---
turned pt to left side. reports no pain, no needs at this time. call light in reach
--- NOTE | 2018-04-10 05:24 | NUR ---
pt had an uneventful night. rested most of the night with at bedside. turned Q2. pillow between knees. repiratory decreased O2, pt tolerated with O2 sat at 94%. pt and report no needs at this time, call light in reach
[2018-04-10 06:28] LABS: BASO % 0.2 % (0.0-2.0); EOS % 0.1 % (0-4.0); GRAN # 12.8 (1.4-6.5); GRAN % 78.2 % (42.2-75.2); HEMATOCRIT 37.6 % (42.0-52.0); LYMPH # 2.3 (1.2-3.4); LYMPH % 13.9 % (20.0-51.0); MEAN CELL VOLUME 94 fl (80.0-100.0); MEAN CORPUSCULAR HEMOGLOBIN 32 pg (27.0-31.0); MEAN CORPUSCULAR HGB CONC 34 g/dl (33.0-37.0); MEAN PLATELET VOLUME 9.5 fl (7.4-10.4); MONO # 1.1 (0.1-0.6); MONO % 6.7 % (1.7-9.3); PLATELET COUNT 107 K/mm3 (130-400); RED BLOOD COUNT 4.01 M/mm3 (4.20-5.60); REDCELL DISTRIBUTION WIDTH-CV 12.5 % (11.5-14.5)
[2018-04-10 06:39] LABS: CALCIUM 8.4 mg/dL (8.4-10.2); CREATININE, serum 0.62 mg/dL (0.66-1.25); POTASSIUM 3.7 mmol/L (3.4-5.0)
[2018-04-10 06:42] LABS: HEMOGLOBIN 12.8 g/dl (13.5-18.0)
[2018-04-10 08:12] VITALS: BP 111/50; PULSE 88; TEMP 99.3
--- NOTE | 2018-04-10 08:44 | NUR ---
First visit from the mechanical drafter. No needs right now.
[2018-04-10 10:43] VITALS: BP 133/61; PULSE 90; TEMP 98.4
--- NOTE | 2018-04-10 11:43 | NUR ---
Assessment complete.patient is non verbal. at bedside.crackles aus. to bilat lung bases.int suction in place to clear secretions.peg tube to mid abdomen.feedings and medications administered through peg tube.cowan in place and draining adequately.iv fluid infuisng at this time to jean-claude cath to left chest.pt repositioned q2h.INT to left hand.no other concerns voiced a this time.will continue to monitor.call light in reach
--- NOTE | 2018-04-10 14:00 | NUR ---
PATIENT RESTING IN BED AT THIS TIME. AT BEDSIDE.PATIENT REPOSITIONED.NO NEEDS VOICED.AT THIS TIME.CALL LIGHT IN REACH
--- NOTE | 2018-04-10 15:33 | NUR ---
AL met with patient and to discuss home health options. She would like one that did medicare and private pay. SW provided Medicare list and talked with her about which provide private duty as well. She would like more information on [facility] cost for an antique furniture repairer. If she needs home IV antibiotics she would like to use [facility] for the medications. AL called Shaq at [facility] and discussed the cost with him. he reports CARPET OR RUG LAYER HELPER's are $19-$21 per hour and will check the cost of RNs. They can help with the IV antibiotics and that would be covered by Medicare. He will call back when he gets the cost of an RN.
[2018-04-10 15:52] VITALS: BP 138/71; PULSE 85; TEMP 98.8
--- NOTE | 2018-04-10 16:24 | NUR ---
SW provided list of agencies and prices for private duty home health agencies around [place] to Family member. Will follow up in the morning when is back.
[2018-04-10 19:14] VITALS: BP 140/94; PULSE 93; TEMP 97.4
--- NOTE | 2018-04-10 19:23 | NUR ---
PATIENT HAS HAD AN UNVENFUL DAY.REPOSITINED Q2H THROUGHOUT THIS SHIFT.LACTIC ACID IMPROVED AND ITS NOW 1.1.IV FLUIDS DECREASED TO 75ML/HR.CROWLEY DRAINING ADEQUATELY.CONTINUE TO HAVE FEEDINGS THROUGH PEG TUBE.NO OTHER CONCERNS VOICED AT THIS TIME.CALL LIGHT IN REACH
--- NOTE | 2018-04-10 21:30 | NUR ---
Resting in bed with at bedside. Assessment complete. Wheezing present on inspiration. Alert but unresponsive. states "this is normal for him." Reports red area on buttocks. Will assess at next turn time. Does not appear in pain at this time. denies other needs. Will monitor. Call light in reach.
--- NOTE | 2018-04-10 22:30 | NUR ---
Repositioned. Incontinent of bowel. Care provided. denies needs. Call light in reach. Will monitor.
[2018-04-10 23:30] VITALS: BP 153/88; PULSE 91; TEMP 99.9
[2018-04-11] VITALS (9 sets, daily range): BP systolic 108–161; BP diastolic 48–95; PULSE 86–148; TEMP 98.3–100.3
--- NOTE | 2018-04-11 01:00 | NUR ---
Repositioned. denies needs. Call light in reach.
--- NOTE | 2018-04-11 03:15 | NUR ---
Repositioned. asleep at bedside. Call light in reach.
--- NOTE | 2018-04-11 05:10 | NUR ---
Repositioned. denies needs. Call light in reach.
--- NOTE | 2018-04-11 05:25 | NUR ---
Temperature elevated. Removed covers, decreased room temperature. Will monitor.
[2018-04-11 06:00] LABS: BASO % 0.2 % (0.0-2.0); EOS % 0.2 % (0-4.0); GRAN # 12.7 (1.4-6.5); GRAN % 80.1 % (42.2-75.2); HEMATOCRIT 37.3 % (42.0-52.0); HEMOGLOBIN 12.8 g/dl (13.5-18.0); LYMPH # 2.1 (1.2-3.4); MEAN CELL VOLUME 93 fl (80.0-100.0); MEAN CORPUSCULAR HEMOGLOBIN 32 pg (27.0-31.0); MEAN CORPUSCULAR HGB CONC 34 g/dl (33.0-37.0); MEAN PLATELET VOLUME 9.9 fl (7.4-10.4); MONO # 0.9 (0.1-0.6); MONO % 5.9 % (1.7-9.3); PLATELET COUNT 122 K/mm3 (130-400); REDCELL DISTRIBUTION WIDTH-CV 12.5 % (11.5-14.5)
[2018-04-11 06:13] LABS: CALCIUM 8.8 mg/dL (8.4-10.2); CREATININE, serum 0.54 mg/dL (0.66-1.25); POTASSIUM 3.7 mmol/L (3.4-5.0)
--- NOTE | 2018-04-11 06:22 | NUR ---
Resting in bed with at bedside. Uneventful night. denies needs. Call light in reach.
--- NOTE | 2018-04-11 07:05 | NUR ---
Assessment complete. Pt is minimally responsive. Breathing appears labored after repositioning on 2L via oxymask. Tele on. L chest portacath has good blood return, flushes easily, remains free of complications, and is CDI. Pt's is at the bedside; all questions answered. Pt is resting quietly in the bed and he appears content. Pt's denies further needs. Call light within reach, will continue to monitor.
--- NOTE | 2018-04-11 09:00 | NUR ---
Called by telemetry that pt is in Afib RVR. IGNACIA Olivares, notified.
--- NOTE | 2018-04-11 09:08 | NUR ---
SW attended clinical rounding with team, and patient. Patient is having some tests run today. reports she received the list of home health options and will let sw know what she would like to do. SW to continue to follow.
--- NOTE | 2018-04-11 09:29 | NUR ---
Cardizem bolus given per protocol
--- NOTE | 2018-04-11 10:00 | NUR ---
Called by potline monitor that the pt has converted to NSR
--- NOTE | 2018-04-11 17:00 | NUR ---
Pt's family arranged a paper greg around the pt's forehead with duct tape around it to help keep the pt's head tilted back. Pt appears comfortable and family is pleased with the set up.
--- NOTE | 2018-04-11 18:32 | NUR ---
Pt has been resting on and off throughout the day. HR has been in the 90's after converting to NSR post cardizem bolus. Pt's has remained at the bedside; all questions answered. Repositioned Q2H. Pt is sitting up in the bed and he appears content. Call light within reach.
--- NOTE | 2018-04-11 21:42 | NUR ---
PT SLeeping with at bedside. pt had an BM. does no moan score 0 RFLACC scale. slight swelling in ankles. pt head proped via with a greg. breathing is not labored. turning q2., pt shift assessment complete/ tele on. reports no needs call light in reach
[2018-04-12] VITALS (7 sets, daily range): BP systolic 103–147; BP diastolic 50–77; PULSE 58–83; TEMP 97.7–99.6
--- NOTE | 2018-04-12 00:20 | NUR ---
MAXIMERING q4. PT HAD A BOWEL MOMENT, CLEAN, MP AND PAD CAHNGED.
--- NOTE | 2018-04-12 01:03 | NUR ---
REPORTED PT HAVING A HARD TIME BREATHING WITH A RED FACE. THIS NURSE ASSESSMED. VITALS STABLE. SUBSIDED WITHIN 2 MINS. WILL CONTINUE TO MONITOR.
--- NOTE | 2018-04-12 01:44 | NUR ---
PT HAD THE SECOND EPISODE OF LABORED BREATHING WITH A FLUSHED FACE. THIS NURSE TOOK VITALS. VITALS STABLE. PT SUBSIDED AND FELL BACK TO SLEEP. WILL CONTINUE TO MONITOR
--- NOTE | 2018-04-12 02:35 | NUR ---
PTS REPORTEDM ANOTHER EPISODE OF DIFFICULTY BREATHING. LASTING 2 MINS IN DURATION.
--- NOTE | 2018-04-12 05:18 | NUR ---
pt had an uneventful night. pt reports no pain. turned pt Q2. pt reports no needs at this time. call light in reach.
[2018-04-12 06:05] LABS: BASO % 0.2 % (0.0-2.0); EOS # 0.1 (0.0-0.7); EOS % 0.6 % (0-4.0); GRAN # 8.5 (1.4-6.5); GRAN % 74.6 % (42.2-75.2); HEMOGLOBIN 11.6 g/dl (13.5-18.0); LYMPH # 2.1 (1.2-3.4); LYMPH % 18.3 % (20.0-51.0); MEAN CELL VOLUME 95 fl (80.0-100.0); MEAN CORPUSCULAR HEMOGLOBIN 32 pg (27.0-31.0); MEAN CORPUSCULAR HGB CONC 33 g/dl (33.0-37.0); MONO # 0.7 (0.1-0.6); MONO % 5.7 % (1.7-9.3); PLATELET COUNT 122 K/mm3 (130-400); RED BLOOD COUNT 3.68 M/mm3 (4.20-5.60); REDCELL DISTRIBUTION WIDTH-CV 12.4 % (11.5-14.5)
[2018-04-12 06:06] LABS: HEMATOCRIT 34.8 % (42.0-52.0)
[2018-04-12 06:11] LABS: INR 1.1 (0.8-3.0); PROTHROMBIN TIME 12.7 SECONDS (9.7-12.8)
[2018-04-12 06:19] LABS: CALCIUM 8.8 mg/dL (8.4-10.2); CREATININE, serum 0.54 mg/dL (0.66-1.25); POTASSIUM 3.7 mmol/L (3.4-5.0)
--- NOTE | 2018-04-12 09:00 | NUR ---
Pt is nonverbal, squeezes with rt hand upon request, otherwise nonresponsive. Pt's at bedside, very attentive. Physical assessment completed. Lungs are slightly diminished otherwise clear, oxygen applied via oxymask at 0.5 L, pt does not appear to have any difficulty breathing. PEG tube working s issues, admins feedings herself with specific process per her preference. Nam is gravity draining clear dark yellow urine. IV to PAC s complications at site. Pt's neck severely flexed chin towards chest, pt's has darlene-rigged device with greg headband duct taped on lead to pole near wall. This headband slips loosely around pt's forehead and supports his head in a more upright position. this RN monitoring site and for possible ill effects. Call light in reach, at bedside, no further needs
--- NOTE | 2018-04-12 13:00 | NUR ---
Pt covnerted back to Afib, this RN called Dr Fermin, see increased dose of sotalol.
--- NOTE | 2018-04-12 16:43 | NUR ---
of pt very hands on and particular about his care. She very competently utilized home lift to position pt above bed, and applied lavage of warm water to rectum to stimulate bowel movement. with son remained at bedside, reported small BM but no great success. This RN assisted to return pt to bed and reposition. No further needs, bed low, call twila roca, and son at bedside. oxymask reapplied, fluids infusing.
--- NOTE | 2018-04-12 19:08 | NUR ---
Through shift pt remained afebrile, no c/o pain, and no guarding/grimacing noted. Pt had one episode with this RN observing at bedside in which his breathing deepened slightly, he gripped his 's hand tightly, and he tensed. No notable increase in WOB, afterwards pt answered yes/no questions and denied pain, SOB, dizziness. No changes or ill effects noted after. Nam continues to gravity drain urine which has lightened from dark yellow/orange to a light yellow. Pt had two very soft formed bowel movements today. PEg site remains free of redness, swelling at site. admins his feedings. PAC site to Rt subclavian remains s redness/swelling, blood return present, fluids nfusing. Pt has been turned q2, buttox without any redness or skin breakdown. Pt on 0.5 L oxygen via oxymask at this time. No further needs, call twila roca, and son at bedside
--- NOTE | 2018-04-12 19:12 | NUR ---
Pt has been flipping back and forth between afib and NSR these past 6 hours, pt is asymptomatic, denies SOB and chest pain/palpitations. Will continue to monitor.
--- NOTE | 2018-04-12 19:13 | NUR ---
Report given to Deepali JIN, cowan drained of 500 cc urine
--- NOTE | 2018-04-12 21:49 | NUR ---
pt sleeping. shift assessment complete. ports assessed, blood return, flushes well. cowan is draining well. pt and family report no needs call light in reach
[2018-04-13] VITALS (7 sets, daily range): BP systolic 104–144; BP diastolic 59–86; PULSE 64–84; TEMP 97.1–99.7
--- NOTE | 2018-04-13 02:19 | NUR ---
pt had a BM, melvin car provided. turning pt Q2H
--- NOTE | 2018-04-13 05:42 | NUR ---
pt had an uneventful night. slept with at bedside. turned pt Q2H. pt and reports no needs, call light in reach
--- NOTE | 2018-04-13 08:30 | NUR ---
Initial assessment completed. No concerns observed fromt he patient or from the . All questions answered and medications administered per the but monitored per this nurse. Feeding completed without any coughing or concern for aspiration.
[2018-04-13 08:57] LABS: HEMOGLOBIN 12.3 g/dl (13.5-18.0); MEAN CELL VOLUME 94 fl (80.0-100.0); MEAN CORPUSCULAR HEMOGLOBIN 32 pg (27.0-31.0); MEAN CORPUSCULAR HGB CONC 34 g/dl (33.0-37.0); MEAN PLATELET VOLUME 9.5 fl (7.4-10.4); PLATELET COUNT 147 K/mm3 (130-400); RED BLOOD COUNT 3.88 M/mm3 (4.20-5.60); REDCELL DISTRIBUTION WIDTH-CV 12.6 % (11.5-14.5)
[2018-04-13 08:59] LABS: HEMATOCRIT 36.4 % (42.0-52.0)
[2018-04-13 09:00] LABS: INR 1.1 (0.8-3.0); PROTHROMBIN TIME 12.1 SECONDS (9.7-12.8)
[2018-04-13 09:05] LABS: CALCIUM 8.7 mg/dL (8.4-10.2); CREATININE, serum 0.56 mg/dL (0.66-1.25); POTASSIUM 3.3 mmol/L (3.4-5.0)
[2018-04-13 09:49] LABS: BAND 1 % (0-10); LYMPHOCYTE 30 % (20.0-51.0); NEUTROPHILS 65 % (42.0-75.2); PLATELET ESTIMATE NORMAL (NORMAL)
--- NOTE | 2018-04-13 15:05 | NUR ---
No change throughout the shift. The remained at the bedside. No pain or needs throughout the day. Q 2 hour turning assistance provided. Will continue to monitor.
--- NOTE | 2018-04-13 19:04 | NUR ---
Report given to DAVIN Herrera to resume care.
--- NOTE | 2018-04-14 01:33 | NUR ---
THE PT WAS UP IN HIS SLING HAVING HYGIENE DONE BY HIS , SHE HAS BEEN DOING THE BULK OF HIS CARES. SHE IS AWARE THAT WE ARE HERE TO HELP ANYTIME. SHE HAS HIS MEDS CRUSHED INDIVIDUALLY AND ADMINISTERS IT VIA HIS PEG. SHE ASKED THAT WE NOT DO HIS ACCUCHECKS, SHE DOESN'T WANT IT DONE. VSS, HE HAD HIS RESP TREATMENT SITTING UPRIGHT WITH HIS HEAD SLING, THIS NURSE THEN ASSISTED WITH REPOSITIONING TO HIS RIGHT SIDE, WANTED HIM TURNED HIGH ON HIS SIDE TO FACILITATE HIS SECRETIONS TO NOT CHOKE HIM. SHE SUCTIONED HIM FOR A LARGE TENATIOUS SPUTUM WAD, SLIGHTLY BROWN IN COLOR. CROWLEY IS PATENT, HE APPEARS TO GET ADEQUATE SLEEP.
--- NOTE | 2018-04-14 03:10 | NUR ---
THE PT WAS REPOSITIONED X2 TO RIGHT SIDE. CROWLEY PATENT, ANTIBIOTICS CONTINUE.
[2018-04-14 03:20] VITALS: BP 130/55; PULSE 66
--- NOTE | 2018-04-14 05:05 | NUR ---
TURNED AND REPOSITIONED.
[2018-04-14 05:58] LABS: PROTHROMBIN TIME 11.8 SECONDS (9.7-12.8)
[2018-04-14 06:11] LABS: ALBUMIN 2.7 gm/dL (3.5-5.0); BILIRUBIN,TOTAL 0.8 mg/dL (0.0-1.0); CALCIUM 8.9 mg/dL (8.4-10.2); CREATININE, serum 0.56 mg/dL (0.66-1.25); MAGNESIUM 2.1 mg/dL (1.6-2.3); PHOSPHOROUS 3.1 mg/dL (2.5-4.5); POTASSIUM 3.8 mmol/L (3.4-5.0); TOTAL PROTEIN 5.9 gm/dL (6.4-8.2)
[2018-04-14 06:18] LABS: PRE ALBUMIN 14.7 mg/dL (17.6-36.0)
[2018-04-14 06:41] LABS: HEMOGLOBIN 12.4 g/dl (13.5-18.0); MEAN CELL VOLUME 93 fl (80.0-100.0); MEAN CORPUSCULAR HEMOGLOBIN 32 pg (27.0-31.0); MEAN CORPUSCULAR HGB CONC 34 g/dl (33.0-37.0); MEAN PLATELET VOLUME 9.7 fl (7.4-10.4); PLATELET COUNT 168 K/mm3 (130-400); RED BLOOD COUNT 3.94 M/mm3 (4.20-5.60); REDCELL DISTRIBUTION WIDTH-CV 12.2 % (11.5-14.5)
[2018-04-14 06:53] LABS: HEMATOCRIT 36.7 % (42.0-52.0)
--- NOTE | 2018-04-14 07:12 | NUR ---
PTS WAS RECEPTIVE TO HAVE NURSE GIVE THYROID MED VIA PEG. PT WAS REPOSITIONED UP IN BED WITH HIS HEAD STRAP IN PLACE HE WILL HAVE RT TX, THEN FEEDING AND SIT UP BEFORE BEING TURNED TO HIS RIGHT SIDE. THE PT'S STATED THAT AT THE TIME, SHE HAS NO HELP AT HOME, WOULD LIKE TO HIRE AN PAINT DIPPER TO COME IN FOR 10-40 HRS PER WEEK AT $15.00 PER HOUR. THE PT WILL KNOD HIS HEAD TO ACKNOWLEDGE WHEN HE IS OR ISN'T COMFORTABLE.
[2018-04-14 07:25] VITALS: BP 138/81; PULSE 66; TEMP 98.2
[2018-04-14] MEDS ORDERED: BETAPACE 120MG120 MG PO (07:27)
[2018-04-14] MEDS ORDERED: ASPIRIN E.C. 8181 MG PO (07:27)
[2018-04-14 07:56] LABS: BAND 2 % (0-10); LYMPHOCYTE 36 % (20.0-51.0); NEUTROPHILS 60 % (42.0-75.2); PLATELET ESTIMATE NORMAL (NORMAL)
--- NOTE | 2018-04-14 08:30 | NUR ---
Assessment complete.patient laying in bed with at bedside.patient is non verbal.VSS.all meds given via peg tube.jean-claude cath flushed and iv fluid infusing.cowan catheter in place and draining adequately.fine crackles aus to bilat lungs.patient repositioned every 2hours.no concerns voiced at this time.call light in reach
[2018-04-14] MEDS ORDERED: CLEOCIN 751500 MG/10 PEG (11:49)
[2018-04-14 13:04] VITALS: BP 127/66; PULSE 80; TEMP 98.1
--- NOTE | 2018-04-14 13:21 | NUR ---
AL met with the patient's to follow up on a decision for home health. The patient's reports that she is going to continuing searching for cheaper private duty aides. She states that she is not interested in home health for PT/OT/ST/ chcf at this time. She states that if she does decide to pursue home health, then she will talk to the patient's PCP. The patient is to discharge back home with his today, 04/14. AL presented and explained the IM form to the patient. The patient's verbalized undestanding, signed, and she was provided a copy. No additional needs at this time.
--- NOTE | 2018-04-14 15:20 | NUR ---
patient discharge home at this time.all discharge instructions given and voiced understanding.all paperwork signed.all questions answered.pt's spouse will call and make follow up appoinment with Doctor José.jean-claude cath de-accessed.telemetry and cowna catheter discontinued.meds reviewed with patients .this RN and LAM Bryant escorted patient and family to vehicle.
== END 2018-04-14 15:32 | disposition home or self-care (01) | DRG 177 ==
LOC: COL.ER 04:02 → MEDICAL 06:27
PROVIDERS: Emergency Medicine; Family Medicine; Nurse Practitioner; Physician Assistant; ADMIT Hospitalist
DX: J69.0 Pneumonitis due to inhalation of food and vomit (principal); J96.21 Acute and chronic respiratory failure with hypoxia; R47.01 Aphasia; E87.2 Acidosis; J18.9 Pneumonia, unspecified organism; G35 Multiple sclerosis; I10 Essential (primary) hypertension; G40.909 Epilepsy, unspecified, not intractable, without status epilepticus; N31.9 Neuromuscular dysfunction of bladder, unspecified; R13.10 Dysphagia, unspecified; I48.0 Paroxysmal atrial fibrillation; Z93.1 Gastrostomy status; D69.6 Thrombocytopenia, unspecified; R04.0 Epistaxis
CPT/HCPCS: 99222-AI; 99223-AI; 99232-AI; 99233-AI; 99239; A4216; G0378; G8978-GP; G8979-GP; J0456; J0692; J0696; J1644; J1650; J3370; J7030; J7040; J7050

== ENCOUNTER 2018-12-05 11:12 | Emergency (ER) | payer MEDICARE, BC ==
[~2018-12-05] VITALS: Ht 182.9 cm; Wt 68.2 kg
[~2018-12-05 11:12] MED LIST changes: +ASPIRIN E.C. 8181 MG PO; +BETAPACE 120MG120 MG PO
[2018-12-05 11:20] VITALS: BP 135/92; TEMP 97
[2018-12-05 11:57] VITALS: PULSE 58
== END 2018-12-05 11:57 | disposition home or self-care (01) ==
LOC: COL.ER 11:12
DX: K94.23 Gastrostomy malfunction (principal); Z79.82 Long term (current) use of aspirin

== ENCOUNTER 2018-12-08 14:43 | Emergency (ER) | payer MEDICARE, BC ==
[~2018-12-08] VITALS: Ht 182.9 cm; Wt 68.2 kg
[2018-12-08 14:47] VITALS: BP 131/67; TEMP 98
[2018-12-08 15:20] VITALS: PULSE 56
== END 2018-12-08 15:14 | disposition home or self-care (01) ==
LOC: COL.ER 14:43
DX: Z46.59 Encounter for fitting and adjustment of other gastrointestinal appliance and device (principal); G35 Multiple sclerosis; Z79.82 Long term (current) use of aspirin

== ENCOUNTER 2019-03-26 08:41 | Emergency (ER) | payer MEDICARE, BC ==
[2019-03-26 09:00] VITALS: TEMP 98.4
[2019-03-26 09:28] LABS: BASO % 0.2 % (0.0-2.0); EOS % 0.2 % (0-4.0); GRAN # 11.3 (1.4-6.5); GRAN % 75.2 % (42.2-75.2); HEMOGLOBIN 15.2 g/dl (13.5-18.0); LYMPH # 2.4 (1.2-3.4); MEAN CELL VOLUME 92 fl (80.0-100.0); MEAN CORPUSCULAR HEMOGLOBIN 31 pg (27.0-31.0); MEAN CORPUSCULAR HGB CONC 34 g/dl (33.0-37.0); MEAN PLATELET VOLUME 9.2 fl (7.4-10.4); MONO # 1.2 (0.1-0.6); MONO % 7.9 % (1.7-9.3); PLATELET COUNT 145 K/mm3 (130-400); RED BLOOD COUNT 4.92 M/mm3 (4.20-5.60); REDCELL DISTRIBUTION WIDTH-CV 12.1 % (11.5-14.5)
[2019-03-26 09:33] LABS: COLLECTION METHOD CATHETER
[2019-03-26 09:37] LABS: ALBUMIN 3.7 gm/dL (3.5-5.0); BILIRUBIN,TOTAL 1.5 mg/dL (0.0-1.0); CALCIUM 9.2 mg/dL (8.4-10.2); CREATININE, serum 0.55 (0.66-1.25); POTASSIUM 3.9 mmol/L (3.4-5.0)
[2019-03-26 09:41] LABS: PH 8 (5-8); SQUAMOUS EPITHELIAL None Seen /hpf; URINE APPEARANCE Cloudy; URINE BACTERIA Rare /hpf; URINE BILIRUBIN Negative (NEGATIVE); URINE BLOOD Negative (NEGATIVE); URINE COLOR Yellow; URINE GLUCOSE Negative (NEGATIVE); URINE KETONE Negative (NEGATIVE); URINE LEUKOCYTE ESTERASE 1+ (NEGATIVE); URINE NITRATE Negative (NEGATIVE); URINE PROTEIN(semi-quant) Negative (NEGATIVE); URINE UROBILINOGEN Negative (NEGATIVE)
[2019-03-26] MEDS ORDERED: LEVAQUIN 5500 MG/TA1 PO (11:04)
[2019-03-26 12:50] VITALS: BP 132/89; PULSE 84
== END 2019-03-26 12:50 | disposition home or self-care (01) ==
LOC: COL.ER 08:41
PROVIDERS: Emergency Medicine
DX: N39.0 Urinary tract infection, site not specified (principal)
CPT/HCPCS: J1956; J7030

== ENCOUNTER 2019-04-11 19:30 | Inpatient (IN) | payer MEDICARE, BC ==
[~2019-04-11] VITALS: Ht 182.9 cm; Wt 74.2 kg
[2019-04-11 20:22] LABS: BASO % 0.3 % (0.0-2.0); EOS # 0.1 (0.0-0.7); EOS % 0.6 % (0-4.0); GRAN # 9.3 (1.4-6.5); GRAN % 87.1 % (42.2-75.2); HEMATOCRIT 44.7 % (42.0-52.0); HEMOGLOBIN 15.1 g/dl (13.5-18.0); LYMPH # 0.6 (1.2-3.4); LYMPH % 5.5 % (20.0-51.0); MEAN CELL VOLUME 91 fl (80.0-100.0); MEAN CORPUSCULAR HEMOGLOBIN 31 pg (27.0-31.0); MEAN CORPUSCULAR HGB CONC 34 g/dl (33.0-37.0); MEAN PLATELET VOLUME 8.9 fl (7.4-10.4); MONO # 0.6 (0.1-0.6); MONO % 5.9 % (1.7-9.3); PLATELET COUNT 166 K/mm3 (130-400)
[2019-04-11 20:36] LABS: ALANINE AMINOTRANSFERASE 9 U/L (21-72); ALBUMIN 3.9 gm/dL (3.5-5.0); ALKALINE PHOSPHATASE 99 U/L (50-136); ANION GAP 9 mmol/L (7-16); AST,SGOT 18 U/L (15-37); BILIRUBIN,TOTAL 0.9 mg/dL (0.0-1.0); BLOOD UREA NITROGEN 11 mg/dL (9-20); CALCIUM 9.4 mg/dL (8.4-10.2); CARBON DIOXIDE 27 mmol/L (22-30); CHLORIDE 100 mmol/L (98-107); GLUCOSE 97 mg/dL (74-106); POTASSIUM 4.2 mmol/L (3.4-5.0); SODIUM 136 mmol/L (137-145); TOTAL PROTEIN 7.4 gm/dL (6.4-8.2)
[2019-04-11 20:37] LABS: C-REACTIVE PROTEIN 0.5 mg/dL (0.0-0.9)
[2019-04-11 20:45] LABS: TROPONIN-I < 0.012 ng/mL (0.000-0.035)
[2019-04-11 21:33] LABS: COLLECTION METHOD CATHETER
[2019-04-11 22:04] LABS: AMORPHOUS CRYSTAL Present /uL; PH 8 (5-8); SQUAMOUS EPITHELIAL None Seen /hpf; URINE APPEARANCE Hazy; URINE BACTERIA None Seen /hpf; URINE BILIRUBIN Negative (NEGATIVE); URINE BLOOD Negative (NEGATIVE); URINE CALCIUM OXALATE CRYSTAL Present /hpf; URINE COLOR Yellow; URINE GLUCOSE Negative (NEGATIVE); URINE KETONE Negative (NEGATIVE); URINE LEUKOCYTE ESTERASE Negative (NEGATIVE); URINE NITRATE Negative (NEGATIVE); URINE PROTEIN(semi-quant) Negative (NEGATIVE); URINE UROBILINOGEN Negative (NEGATIVE)
[2019-04-12] VITALS (7 sets, daily range): BP systolic 114–136; BP diastolic 52–72; PULSE 80–105; TEMP 98.9–100.1
[2019-04-12 00:19] LABS: ARTERIAL BLOOD GAS pH 7.45 (7.35-7.45)
[2019-04-12 00:20] LABS: ARTERIAL BLD GAS O2 SATURATION 95.9 % (92-100); ARTERIAL BLOOD GAS BASE EXCESS -1.3 (-2-2); ARTERIAL BLOOD GAS HCO3 21.7 meq/L (22-26); ARTERIAL BLOOD GAS PCO2 31.9 mmHg (35-45); ARTERIAL BLOOD GAS PO2 76.7 mmHg (80-100)
[2019-04-12] MEDS ORDERED: ASPIRIN 81M81 MG/TA2 PO ×2 (00:45→00:47)
[2019-04-12] MEDS ORDERED: BETAPACE 120MG120 MG PO (00:51)
--- NOTE | 2019-04-12 04:32 | NUR ---
Patient to the floor around 0000. Max 4 assist to get into bed d/t not having the correct lift for the full body sling underneath patient. Patient does not open his eyes and is very lethargic. states he has been like this since Saturday morning and he usually opens his eyes and can nod his head. Patient is nonverbal and has paralysis d/t MS. Lung sounds diminished throughout all garber. Noted to cough up light yellow sputum. Suction at bedside. assists patient with suction PRN. Patient repositioned q2 hours. Coccyx noted to be red, but blanchable. PEG tube present and administers medications and feedings. Patient placed on droplet precautions d/t positive Influenza A. PortaCath accessed to left chest. Nam catheter present and draining clear yellow urine. answers questions on 5-page and med rec. is DPOA. Denies any further needs. Will continue to monitor patient.
[2019-04-12 08:28] LABS: HEMATOCRIT 41.6 % (42.0-52.0); MEAN CELL VOLUME 91 fl (80.0-100.0); MEAN CORPUSCULAR HEMOGLOBIN 31 pg (27.0-31.0); MEAN CORPUSCULAR HGB CONC 34 g/dl (33.0-37.0); MEAN PLATELET VOLUME 9.3 fl (7.4-10.4); PLATELET COUNT 149 K/mm3 (130-400); RED BLOOD COUNT 4.57 M/mm3 (4.20-5.60); REDCELL DISTRIBUTION WIDTH-CV 12.1 % (11.5-14.5)
--- NOTE | 2019-04-12 08:41 | NUR ---
PATIENT ASSESSMENT COMPLETED. HE HAS BEEN REPOSITIONED IN THE BED. AT BEDSIDE. SHE MANAGES ALL OF HIS PEG TUBE MEDICATIONS AND FEEDINGS. HE APPEARS TO BE COMFORTABLE IN BED. NO OTHER NEEDS AT THIS TIME.
[2019-04-12 09:02] LABS: CALCIUM 8.8 mg/dL (8.4-10.2); CREATININE, serum 0.49 (0.66-1.25); POTASSIUM 4.1 mmol/L (3.4-5.0)
[2019-04-12 09:57] LABS: BAND 4 % (0-10); LYMPHOCYTE 7 % (20.0-51.0); NEUTROPHILS 85 % (42.0-75.2); PLATELET ESTIMATE NORMAL (NORMAL)
--- NOTE | 2019-04-12 10:03 | NUR ---
DOES NOT WANT US TO REPOSITION HIM AT THIS TIME. SHE JUST FINISHED FEEDING HIM AND WILL LET US KNOW WHEN ITS TIME.
--- NOTE | 2019-04-12 16:52 | NUR ---
IS HOME RIGHT NOW AND THE CAREGIVER THAT IS SITTING WITH HIM CALLED HIS AND REQUESTED THAT WE LEAVE HIM ON HIS BACK FOR A LITTLE WHILE LONGER AND WHEN SHE GETS BACK WE WILL TURN HIM
--- NOTE | 2019-04-12 17:46 | NUR ---
PATIENT HAS A LOW GRADE TEMP PRN TYLENOL GIVEN FOR THIS AT THIS TIME.
--- NOTE | 2019-04-12 20:01 | NUR ---
explains that the patient medication Betapace should be 60mg twice a day. At this time it is ordered for once a day at 0900. Explained that I would contact the hospitalist to see if we can correct.
--- NOTE | 2019-04-12 20:15 | NUR ---
Lying on left side with eyes closed. Repositioned to back with assist of two. Spouse will assist in giving meds via peg tube. Port a cath with dressing CDI, no redness/edema/drainage. Patient opens eyes, does not talk. Has thick clear sputum that assists in suctioning. Nam to dependent drainage, draining clear yellow urine. No further needs at this time per the spouse.
--- NOTE | 2019-04-12 21:53 | NUR ---
Spoke with SCOTTY Edwards, and explain how patient takes Betapace at home per the . Chart reviewed. Previous Betapace prescription for daily dose discontinued by Ms. Leal and new prescription for Betapace 60mg BID placed in system by Ms. Leal. informed and medication administered.
--- NOTE | 2019-04-12 23:40 | NUR ---
Lying in bed on right side. Eyes closed. Respirations even and unlabored. No signs or symptoms of discomfort noted. in room with the patient.
[2019-04-13] VITALS (7 sets, daily range): BP systolic 99–161; BP diastolic 53–74; PULSE 65–91; TEMP 98.5–101.1
--- NOTE | 2019-04-13 01:43 | NUR ---
Lying in bed with eyes closed on right side. Respirations even and unlabored. No signs or symptoms of discomfort noted at this time. Patient repositioned with assist of two to left side. Tolerates without difficulty. Nam to dependent drainage with clear yellow urine. in room with patient. No further needs at this time.
--- NOTE | 2019-04-13 03:38 | NUR ---
Lying in bed on left side with eyes closed. Respirations even and unlabored. No signs or symptoms of discomfort noted. Repositioned patient onto right side with assist of two. Patient tolerates without difficulty. Nam to dependent drainage with clear yellow urine. remains in room with the patient. denies further needs at this time.
--- NOTE | 2019-04-13 05:39 | NUR ---
Patient remains lying on right side with eyes closed. Respirations even and unlabored. No signs or symptoms of discomfort or respiratory difficulties. Asked patient's if she would like us to reposition patient to his back so that his medication can be administered. declines at this time and says that she wants to wait a little bit longer and she will give the medication later. Denies further needs at this time.
[2019-04-13 06:14] LABS: BASO % 0.1 % (0.0-2.0); GRAN # 4.4 (1.4-6.5); GRAN % 65.5 % (42.2-75.2); HEMATOCRIT 37.6 % (42.0-52.0); HEMOGLOBIN 12.5 g/dl (13.5-18.0); LYMPH # 1.3 (1.2-3.4); LYMPH % 18.8 % (20.0-51.0); MEAN CELL VOLUME 94 fl (80.0-100.0); MEAN CORPUSCULAR HEMOGLOBIN 31 pg (27.0-31.0); MEAN CORPUSCULAR HGB CONC 33 g/dl (33.0-37.0); MEAN PLATELET VOLUME 9.4 fl (7.4-10.4); MONO % 15.2 % (1.7-9.3); PLATELET COUNT 134 K/mm3 (130-400); RED BLOOD COUNT 4.02 M/mm3 (4.20-5.60); REDCELL DISTRIBUTION WIDTH-CV 12.4 % (11.5-14.5)
[2019-04-13 07:10] LABS: CREATININE, serum 0.63 (0.66-1.25); POTASSIUM 3.8 mmol/L (3.4-5.0)
--- NOTE | 2019-04-13 07:15 | NUR ---
Report received from DAVIN Barajas. pT in bed resting with at bedside, repositioned for comfort, will continue to monitor.
--- NOTE | 2019-04-13 09:30 | NUR ---
Assessment charted. Pt is able to arouse briefly and open eyes, squeezed with right hand briefly. Resting on side, when turned found BM. Incontinent care provided, bed bath provided, catheter draining clear yellow urine to DD. PEG feeding and meds given per who manages his care very well. Turning q2 hours to prevent skin breakdown. denies needs, will continue to monitor.
--- NOTE | 2019-04-13 12:58 | NUR ---
Pts got herself an appointment at a PCP at 1345 today, does not feel comfortable leaving unless someone is here to be at bedside with pt. Called supervisor liquefaction regarding request and a SPRING MAKER will be here to assist while she is away. Repositioned for comfort, will continue to monitor.
--- NOTE | 2019-04-13 15:09 | NUR ---
Miner Placer met with patient and patient's Julia (ph#[phone]) to discuss discharge planning. Patient is non verbal and intake questions were answered by Julia. Patient lives in [place] with his and sees Dr. Bartlett for primary care. Julia states she privately hires two CNAs that provide support in the home and that their hours depend on her need for them. Patient's medications are obtained from [facility]. Julia or one of the CNAs pick them up for patient. Patient requires assistance with all ADLS and needs two people for support while bathing as his head needs to be supported while he is in the shower chair. Julia inquired about a shower chair with a head rest. Patient has a four point lift, hospital bed and a wheelchair that tilts and can recline. Patient has Advance Directives located in EMR and plans to return home upon discharge. SW to continue to follow to ensure safe discharge.
--- NOTE | 2019-04-13 18:33 | NUR ---
Pt has had two large bowel movements today, incontinent, changed linenes and provided incontinent care. Resting in bed on side, turned q2h. feesd and gives meds. Denies needs, will give bedside shift report to nightshift nurse who willr esume care.
[2019-04-14] VITALS (7 sets, daily range): BP systolic 104–160; BP diastolic 48–82; PULSE 67–96; TEMP 98.1–100.6
--- NOTE | 2019-04-14 01:58 | NUR ---
ASSESSMENT COMPLETE.RESTING IN BED. UNABLE TO COMMUNICATE. SPOUSE AT BEDSIDE FEEDING PT THROUGH PEG TUBE PER THEIR HOME PROTOCOL. HOB ELEVATED 45 DEGREES. SPOUSE DENIES NEEDS AT THIS TIME.
[2019-04-14 09:15] LABS: BASO % 0.3 % (0.0-2.0); GRAN % 54.2 % (42.2-75.2); HEMATOCRIT 40.4 % (42.0-52.0); HEMOGLOBIN 13.7 g/dl (13.5-18.0); LYMPH # 2.5 (1.2-3.4); LYMPH % 34.7 % (20.0-51.0); MEAN CELL VOLUME 92 fl (80.0-100.0); MEAN CORPUSCULAR HEMOGLOBIN 31 pg (27.0-31.0); MEAN CORPUSCULAR HGB CONC 34 g/dl (33.0-37.0); MEAN PLATELET VOLUME 9.5 fl (7.4-10.4); MONO # 0.8 (0.1-0.6); MONO % 10.4 % (1.7-9.3); PLATELET COUNT 142 K/mm3 (130-400); RED BLOOD COUNT 4.38 M/mm3 (4.20-5.60); REDCELL DISTRIBUTION WIDTH-CV 12.5 % (11.5-14.5)
--- NOTE | 2019-04-14 11:10 | NUR ---
Pt resting in bed, medications given through PEG tube, spouse in room, shift assessments complete, Pt had large bowel movememt, cleaned and changed, left Pt bed in lowest position.
--- NOTE | 2019-04-14 19:21 | NUR ---
Pt resting in the room today, spouse in room with Pt most of the day, no noticable indications of pain, Pt has had several bouts of diarrhea, sample sent to lab for testing, VS haver remained stable.
--- NOTE | 2019-04-14 20:30 | NUR ---
Patient laying left side, signifigant other in the room. Port on the left is accessed. Patient has a PEG tube. Currently a cowan is in place. is concerned about loose stools patient has been having and the need for further antibiotics. She is also concerned about patient getting dehydrated and requested this nurse to call to request fluids to be restarted. This nurse called MONAE Xie new orders noted.
[2019-04-15] VITALS (8 sets, daily range): BP systolic 112–164; BP diastolic 65–90; PULSE 68–93; TEMP 97–102.9
[2019-04-15 06:17] LABS: BASO % 0.2 % (0.0-2.0); GRAN # 4.7 (1.4-6.5); GRAN % 71.2 % (42.2-75.2); HEMATOCRIT 40.4 % (42.0-52.0); HEMOGLOBIN 13.5 g/dl (13.5-18.0); LYMPH # 1.4 (1.2-3.4); LYMPH % 21.1 % (20.0-51.0); MEAN CELL VOLUME 92 fl (80.0-100.0); MEAN CORPUSCULAR HEMOGLOBIN 31 pg (27.0-31.0); MEAN CORPUSCULAR HGB CONC 33 g/dl (33.0-37.0); MEAN PLATELET VOLUME 9.5 fl (7.4-10.4); MONO # 0.5 (0.1-0.6); PLATELET COUNT 144 K/mm3 (130-400); RED BLOOD COUNT 4.37 M/mm3 (4.20-5.60); REDCELL DISTRIBUTION WIDTH-CV 12.4 % (11.5-14.5)
[2019-04-15 06:41] LABS: CALCIUM 8.4 mg/dL (8.4-10.2); CREATININE, serum 0.54 (0.66-1.25); POTASSIUM 3.8 mmol/L (3.4-5.0)
--- NOTE | 2019-04-15 09:35 | NUR ---
Pt resting in bed, does not appear to be in pain at this time, spouse in room, shift assessments complete, left Pt bed in lowest position.
--- NOTE | 2019-04-15 19:00 | NUR ---
REPORT RECEIVED FROM DAVIN BARLOW; CARE OF PT ASSUMED AT THIS TIME. BEDSIDE ROUNDS COMPLETED; ASSISTED TO REPOSITION PT UPRIGHT IN BED FOR TUBE FEEDING. PILLOWS PLACED FOR COMFORT. ALL NEEDS MET. CALL LIGHT WITHIN REACH, REMAINS AT PT BEDSIDE.
--- NOTE | 2019-04-15 19:43 | NUR ---
Pt resting in bed, no noticable signs of pain, no fevers during the day, Pt has had several loose stools today, VS have remained stable.
--- NOTE | 2019-04-15 19:57 | NUR ---
PT APPEARS DROWSY AND IS NOT CURRENTLY RESONDING TO COMMANDS FROM MANAGER HOSPITALITY. REPORTS THAT PT HAS BEEN MORE RESPONSIVE TODAY AND SHE "THOUGHT WE WERE ON THE MEND." PT REPOSITIONED IN BED TO SIT UP FOR FEEDING PER PEG TUBE BY . PT RESPIRATIONS SOUND MOIST AND IS PROVIDING PRN SUCTIONING. STATES THAT PT IS "NOT LIKE HIM" AT THIS TIME, INQUIRES OF HIS TEMP. TEMP TAKEN ORALLY AND FOUND TO BE ELEVATED AT 102.9; TYLENOL PROVIDED TO BE GIVEN BY PER PEG TUBE. ATTEMPTED TO CALL RENETTA TO REPORT TEMP. RENETTA STATES SHE WILL RETURN THE CALL WHEN ABLE. PILLOWS ARE PLACED FOR COMFORT. BRIEF CHANGED AND TARUN CARE PROVIDED PRIOR TO POSITION CHANGE, PT TOLERATED WELL, OCC VERBALIZES MOANING. REMAINS AT PT BEDSIDE.
--- NOTE | 2019-04-15 21:34 | NUR ---
SPOKE WITH RENETTA PER PHONE REGARDING PT TEMP AND LETHARGY; NEW ORDERS RECEIVED FOR UA, BLOOD CULTURES X2 AND IV CXR. REPORTED THIS TO PT .
[2019-04-16] VITALS (7 sets, daily range): BP systolic 114–154; BP diastolic 58–80; PULSE 83–88; TEMP 98.3–102.4
[2019-04-16 00:18] LABS: COLLECTION METHOD CATHETER
[2019-04-16 00:25] LABS: MUCOUS Present /lpf; PH 6 (5-8); SQUAMOUS EPITHELIAL None Seen /hpf; URINE APPEARANCE Clear; URINE BACTERIA None Seen /hpf; URINE BILIRUBIN Negative (NEGATIVE); URINE BLOOD 3+ (NEGATIVE); URINE COLOR Yellow; URINE GLUCOSE Negative (NEGATIVE); URINE KETONE Trace (NEGATIVE); URINE LEUKOCYTE ESTERASE Negative (NEGATIVE); URINE NITRATE Negative (NEGATIVE); URINE PROTEIN(semi-quant) Negative (NEGATIVE); URINE RBC >50 /hpf; URINE UROBILINOGEN Negative (NEGATIVE)
--- NOTE | 2019-04-16 02:44 | NUR ---
PT REPOSITIONED TO LEFT SIDE WITH PILLOWS PLACED FOR COMFORT. IV TUBING CHANGED AT THIS TIME. TEMP CHECKED AND FOUND TO BE ELEVATED AT 101.4, TYLENOL GIVEN PER PEG TUBE. HOB ELEVATED. CALL LIGHT WITHIN REACH. REMAINS AT PT BEDSIDE.
--- NOTE | 2019-04-16 04:50 | NUR ---
RENETTA NOTIFIED PER PHONE REGARDING PT'S CONT ELEVATED TEMP OF 101.4 CURRENTLY DESPITE TYLENOL GIVEN AT 0245. REPORTED PT O2 SAT AT 92% WITH 3L O2 PER NC. PT LS COARSE AND MOIST. NEW ORDERS RECEIVED FOR MOTRIN PRN, DUONEB TX PRN. WILL CONT TO MONITOR PT CLOSELY. REPORTED TO PT THAT CXR DID NOT SHOW "ANYTHING TOO CONCERNING" PER RENETTA. REMAINS AT PT BEDSIDE.
--- NOTE | 2019-04-16 05:55 | NUR ---
PT HAS HAD FEVERS TONIGHT WITH TYLENOL AND MOTRIN ADMINISTERED PRN. REQUIRING O2 AT 2-3L PER NC NOW. LS HAVE COARSE RATTLES THROUGHOUT AND PT IS REQUIRING MORE FREQUENT SUCTIONING WITH VERY LITTLE SPUTUM OBTAINED PER . PT HAS CROWLEY AND IS HAVING GOOD OUTPUT. UA WAS OBTAINED TONIGHT AND WNL. PT HAS A LOOSE STOOL X1. SKIN REMAINS INTACT. BEING REPOSITIONED EVERY 2 HOURS. HAS REMAINED AT PT BEDSDIE AND IS VERY INVOLVED IN PT CARES. CALL LIGHT WITHIN REACH.
[2019-04-16 06:00] LABS: GRAN # 5.1 (1.4-6.5); GRAN % 83.2 % (42.2-75.2); HEMATOCRIT 37.5 % (42.0-52.0); HEMOGLOBIN 12.5 g/dl (13.5-18.0); LYMPH # 0.6 (1.2-3.4); LYMPH % 10.4 % (20.0-51.0); MEAN CELL VOLUME 92 fl (80.0-100.0); MEAN CORPUSCULAR HEMOGLOBIN 31 pg (27.0-31.0); MEAN CORPUSCULAR HGB CONC 33 g/dl (33.0-37.0); MEAN PLATELET VOLUME 9.3 fl (7.4-10.4); MONO # 0.4 (0.1-0.6); MONO % 6.1 % (1.7-9.3); PLATELET COUNT 136 K/mm3 (130-400); RED BLOOD COUNT 4.09 M/mm3 (4.20-5.60); REDCELL DISTRIBUTION WIDTH-CV 12.2 % (11.5-14.5)
[2019-04-16 06:27] LABS: CALCIUM 8.1 mg/dL (8.4-10.2); CREATININE, serum 0.51 (0.66-1.25); POTASSIUM 3.4 mmol/L (3.4-5.0)
--- NOTE | 2019-04-16 07:00 | NUR ---
Report with DAVIN Georges. Pt and sleeping, resp even and unlabored.
--- NOTE | 2019-04-16 07:06 | NUR ---
REPORT GIVEN TO DAVIN GAY.
--- NOTE | 2019-04-16 07:40 | NUR ---
Assessment complete. Pt repositioned with assistance from aide to sit up for medications and feeding. Breath sounds coarse in upper lobes bilat. IVF's infusing per orders through left side PAC. Nam to DD without s/s of complications. Pt's at bedside. No further needs reported. Call light in reach.
--- NOTE | 2019-04-16 09:38 | NUR ---
Pt's providing feeding through PEG tube and administering medications simultaneously, denies further needs at this time. Call light in reach.
--- NOTE | 2019-04-16 16:01 | NUR ---
AL met with the patient and the patient's to revisit the discharge plan. The patient is non-verbal and full care. The patient's confirmed they have two CNAs that assist with the patient's care and the plan is to go home and continue with the assistance. The patient's inquired about a head strap for the patient's shower chair. Iva MELENDEZ contacted [facility] and they report that they do not carry that equipment. support services manager will continue to follow.
--- NOTE | 2019-04-16 17:09 | NUR ---
Pt's temp increased to 102.4 Axillary after cleaning a BM and repositioning. PRN Tylenol provided to pt's to administer through PEG tube. BM remains loose and large. Pt with increased work of breathing and audible chest congestion. Doctor notified.
[2019-04-17] VITALS (7 sets, daily range): BP systolic 108–164; BP diastolic 57–85; PULSE 64–85; TEMP 97.3–102.4
--- NOTE | 2019-04-17 04:39 | NUR ---
Patient noted to have a fever of 102.6. PRN Tylenol given. Temp down to 102.4. PRN Motrin given. Temp down to 100.2. Patient repositioned q2 hours and incontinent cares provided. at bedside. Patient nonverbal and does not open eyes. Has no movement to any extremities. Nam catheter in place draining david urine. Noted to cough a couple times tonight, but nothing was suctioned out of patient's mouth. Will continue to monitor.
--- NOTE | 2019-04-17 08:00 | NUR ---
PATIENT IS A QUADRIPLEGIC AND REQUIRED TOTAL PATIENT CARE. PATIENT HAS HX OF M.S. AND PROVIDES MOST CARES. PEG TUBE FOR ALL MEDS AND FEEDINGS. NPO. REPORTS THEY STRAIGHT CATH AT HOME. CROWLEY TO DD HERE WITH CLEAR YELLOW URINE NOTED. LEFT PORT TO INT. VSS. AFEBRILE THIS AM. TELE INPLACE. PT/OT/ST ALL CONSULTED. PATIENT IS ON DROPLET PRECAUTIONS FOR INFUENZA A. REPORTS ISSUES WITH DIARRHEA. C-DIFF NEGATIVE. PATIENT ON IV ABX FOR PNEUMONIA. HEAD TO TOE ASSESSMENT COMPLETE. AWAITING HOSPITALIST TO ROUND.
--- NOTE | 2019-04-17 11:05 | NUR ---
CALLED AND LEFT CONSULT MESSAGE FOR I.D.
--- NOTE | 2019-04-17 15:30 | NUR ---
PATIENT TAKING TO ON NURSING'S PHONE
--- NOTE | 2019-04-17 19:58 | NUR ---
Repositioned patient in the bed. Patient had bowel movement. Assisted in providing pericare to the patient. in room. Will hold off on meds as she wanted to get patient off his bottom for a while, will reposition in a little bit then administer medications via peg tube. Patient has eyes open. Non verbal. Occassionally moans out. Has thick clear sputum. Nares with dried blood. Bottom slightly red, no open areas. Lotion applied to back. Lung sounds coarse throughout. denies further needs at this time.
--- NOTE | 2019-04-17 20:22 | NUR ---
Patient bottom red, no skin breakdown noted. Contacted Dr. Noel and orders received for Desitin ointment.
--- NOTE | 2019-04-17 23:27 | NUR ---
Lying in bed on right side with eyes closed. Respirations even and unlabored. No signs or symptoms of discomfort noted at this time. asleep in room.
[2019-04-18] VITALS (7 sets, daily range): BP systolic 105–141; BP diastolic 62–80; PULSE 68–86; TEMP 97.2–99.7
--- NOTE | 2019-04-18 00:58 | NUR ---
Repositioned patient onto left side. Tolerates without difficulty. Had small amount of clear thick sputum that required suctioning. No bowel movement at this time. Nam to dependent drainage draining clear yellow urine. remains in room with the patient. Denies further needs at this time.
--- NOTE | 2019-04-18 03:14 | NUR ---
Lying in bed with eyes closed on left side. Patient repositioned to right side. Tolerates without difficulty. No loose stools at this time. Nam to dependent drainage with clear yellow urine in bag and tubing. NO signs or symptoms of discomfort noted. remains in room. Denies further needs at this time.
--- NOTE | 2019-04-18 05:14 | NUR ---
Lying in bed on right side with eyes closed. Respirations even and unlabored. Repositioned patient to left side. Patient coughs a couple times after repositioning. Small bowel movement smear in brief. Francoise care provided, new brief applied, and desitin applied to buttocks. Patient tolerates without difficulty. remains in room with the patient. Declines further needs at this time.
--- NOTE | 2019-04-18 07:00 | NUR ---
Report received from DAVIN Barajas .pT in bed resting on side, turned to back per and sat up to prep for feeding and meds. Pt awkens and moans, will continue to monitor.
[2019-04-18 07:11] LABS: HEMOGLOBIN 13.6 g/dl (13.5-18.0); MEAN CELL VOLUME 90 fl (80.0-100.0); MEAN CORPUSCULAR HEMOGLOBIN 31 pg (27.0-31.0); MEAN CORPUSCULAR HGB CONC 34 g/dl (33.0-37.0); PLATELET COUNT 129 K/mm3 (130-400); RED BLOOD COUNT 4.43 M/mm3 (4.20-5.60); REDCELL DISTRIBUTION WIDTH-CV 12.3 % (11.5-14.5)
[2019-04-18 07:21] LABS: CALCIUM 8.3 mg/dL (8.4-10.2); CREATININE, serum 0.54 (0.66-1.25); POTASSIUM 3.6 mmol/L (3.4-5.0)
--- NOTE | 2019-04-18 08:55 | NUR ---
Assessment charted. Pt has course lung sounds in RLL and expiratory wheezes in LLL. Appears comfortable. Sitting upright and doing meds. Denies needs. Julia requests to talk to omega Richard and he will call back when he can access computer and review labs so they can discuss the plan. agreeable. Nam draining clear yellow urine to DD at side of bed. PAC to BENNETT flushes well and good blood return. Will continue to monitor.
[2019-04-18 10:04] LABS: BAND 26 % (0-10); LYMPHOCYTE 36 % (20.0-51.0); METAMYELOCYTE 1 % (0-0); NEUTROPHILS 34 % (42.0-75.2); NUCLEATED RED BLOOD CELL 1 (0-6); PLATELET ESTIMATE DECREASED (NORMAL)
--- NOTE | 2019-04-18 17:56 | NUR ---
Pt has done well today, opening eyes more. spoke with Herminio this afternoon regarding antibiotic medication plan. Julia agreeable to plan. Pt resting in bed, turned q2h. Doing well, anticipating dishcarge tomorrow. Denies needs, will give bedside shift report to nightshift nurse who will resume care.
[2019-04-19 00:49] VITALS: BP 131/65; PULSE 71; TEMP 99.2
[2019-04-19 03:08] VITALS: BP 106/62; PULSE 63; TEMP 99
--- NOTE | 2019-04-19 05:28 | NUR ---
RESTING QUIETLY NOW. PT'S VERY INVOLVED IN PT'S CARE HERE AT THE HOSPITAL. PT AFEBRILE.
--- NOTE | 2019-04-19 07:00 | NUR ---
Report received from Graham Rome. pt and in bed sleeping, will continue to monitor.
[2019-04-19 07:59] VITALS: BP 125/74; PULSE 70; TEMP 98.5
--- NOTE | 2019-04-19 08:40 | NUR ---
Assessment charted. Pt more alert and awake this morning. Resting in bed, turning q2h. PAC to BENNETT. Discussing options for getting pt out of bed to wheelchair if discharging today. Will continue to monitor.
[2019-04-19 11:21] VITALS: BP 119/64; PULSE 66; TEMP 97.7
[2019-04-19] MEDS ORDERED: LEVAQUIN 5500 MG/TA1 PO (13:46)
--- NOTE | 2019-04-19 14:43 | NUR ---
Discharge teaching completed at this time. Packet reviewed with Preeti, pt agreeable to make f/u appointment tomorrow. Heparinized PAC and de-accessed. Assissted to wheelchair with two other male nurses. Pt tolerated well. Pt escorted out via own w/c with myself and family. to drive home, criteria met.
== END 2019-04-19 14:20 | disposition home or self-care (01) | DRG 193 ==
LOC: COL.ER 19:30 → MEDICAL 21:57
PROVIDERS: Emergency Medicine; Hospitalist; Nurse Practitioner Family; Physician Assistant; ADMIT Internal Medicine
DX: J10.00 Influenza due to other identified influenza virus with unspecified type of pneumonia (principal); J96.01 Acute respiratory failure with hypoxia; R47.01 Aphasia; E03.9 Hypothyroidism, unspecified; I10 Essential (primary) hypertension; I48.91 Unspecified atrial fibrillation; T36.8X5A Adverse effect of other systemic antibiotics, initial encounter; J69.0 Pneumonitis due to inhalation of food and vomit; G83.89 Other specified paralytic syndromes; G35 Multiple sclerosis; N31.9 Neuromuscular dysfunction of bladder, unspecified; Z99.3 Dependence on wheelchair; Z87.440 Personal history of urinary (tract) infections; Z87.01 Personal history of pneumonia (recurrent); Z90.49 Acquired absence of other specified parts of digestive tract; Z93.1 Gastrostomy status; Z79.82 Long term (current) use of aspirin; Z87.891 Personal history of nicotine dependence; Z88.0 Allergy status to penicillin; Z88.1 Allergy status to other antibiotic agents; Z88.8 Allergy status to other drugs, medicaments and biological substances; Z91.018 Allergy to other foods
CPT/HCPCS: 99222-AI; 99231-AI; 99232-AI; 99233-AI; A4216; A4314; J0692; J0696; J1650; J1956; J2930; J7030

== ENCOUNTER 2019-09-14 16:28 | Emergency (ER) | payer MEDICARE, BC ==
[~2019-09-14] VITALS: Wt 68.2 kg
[~2019-09-14 16:28] MED LIST changes: +ASPIRIN 81M81 MG/TA2 PO
[2019-09-14 16:37] VITALS: TEMP 97.6
[2019-09-14 16:47] VITALS: BP 141/94; PULSE 59
== END 2019-09-14 16:56 | disposition home or self-care (01) ==
LOC: COL.ER 16:28
DX: Z43.1 Encounter for attention to gastrostomy (principal); G35 Multiple sclerosis; Z79.82 Long term (current) use of aspirin

== ENCOUNTER 2019-11-16 16:37 | Emergency (ER) | payer MEDICARE, BC ==
[~2019-11-16] VITALS: Ht 182.9 cm; Wt 70.5 kg
[2019-11-16 16:43] VITALS: TEMP 97.7
[2019-11-16 17:27] LABS: ALBUMIN 3.5 gm/dL (3.5-5.0); BILIRUBIN,TOTAL 0.9 mg/dL (0.0-1.0); CALCIUM 9.3 mg/dL (8.4-10.2); CREATININE, serum 0.56 (0.66-1.25); POTASSIUM 4.2 mmol/L (3.4-5.0)
[2019-11-16 17:34] LABS: BASO % 0.4 % (0.0-2.0); EOS # 0.1 (0.0-0.7); EOS % 0.8 % (0-4.0); GRAN # 6.6 (1.4-6.5); GRAN % 60.4 % (42.2-75.2); HEMATOCRIT 44.9 % (42.0-52.0); HEMOGLOBIN 15.2 g/dl (13.5-18.0); LYMPH # 3.2 (1.2-3.4); LYMPH % 29.2 % (20.0-51.0); MEAN CELL VOLUME 93 fl (80.0-100.0); MEAN CORPUSCULAR HEMOGLOBIN 31 pg (27.0-31.0); MEAN CORPUSCULAR HGB CONC 34 g/dl (33.0-37.0); MEAN PLATELET VOLUME 9.5 fl (7.4-10.4); MONO # 0.9 (0.1-0.6); MONO % 8.7 % (1.7-9.3); PLATELET COUNT 60 K/mm3 (130-400); RED BLOOD COUNT 4.84 M/mm3 (4.20-5.60); REDCELL DISTRIBUTION WIDTH-CV 12.5 % (11.5-14.5)
[2019-11-16 17:55] LABS: COLLECTION METHOD CLEAN CATCH
[2019-11-16 18:01] LABS: PH 7 (5-8); SQUAMOUS EPITHELIAL None Seen /hpf; URINE APPEARANCE Hazy; URINE BACTERIA None Seen /hpf; URINE BILIRUBIN Negative (NEGATIVE); URINE BLOOD Negative (NEGATIVE); URINE COLOR Yellow; URINE GLUCOSE Negative (NEGATIVE); URINE KETONE Negative (NEGATIVE); URINE LEUKOCYTE ESTERASE 3+ (NEGATIVE); URINE NITRATE Negative (NEGATIVE); URINE PROTEIN(semi-quant) Negative (NEGATIVE); URINE RBC 0-2 /hpf; URINE UROBILINOGEN Negative (NEGATIVE)
[2019-11-16 19:33] VITALS: BP 150/86; PULSE 65
== END 2019-11-16 19:22 | disposition home or self-care (01) ==
LOC: COL.ER 16:37
PROVIDERS: Family Medicine
DX: N39.0 Urinary tract infection, site not specified (principal); R41.82 Altered mental status, unspecified; R00.1 Bradycardia, unspecified
CPT/HCPCS: J0696; J7120

== ENCOUNTER 2020-09-14 21:56 | Emergency (ER) | payer MEDICARE, BC ==
[~2020-09-14] VITALS: Ht 182.9 cm; Wt 68.2 kg
[2020-09-14 22:43] LABS: BASO % 0.3 % (0.0-2.0); EOS # 0.1 (0.0-0.7); GRAN # 7.5 (1.4-6.5); HEMATOCRIT 45.2 % (42.0-52.0); HEMOGLOBIN 15.1 g/dl (13.5-18.0); LYMPH # 2.8 (1.2-3.4); LYMPH % 24.4 % (20.0-51.0); MEAN CELL VOLUME 92 fl (80.0-100.0); MEAN CORPUSCULAR HEMOGLOBIN 31 pg (27.0-31.0); MEAN CORPUSCULAR HGB CONC 33 g/dl (33.0-37.0); MEAN PLATELET VOLUME 9.1 fl (7.4-10.4); MONO % 8.9 % (1.7-9.3); PLATELET COUNT 159 K/mm3 (130-400); RED BLOOD COUNT 4.92 M/mm3 (4.20-5.60); REDCELL DISTRIBUTION WIDTH-CV 12.4 % (11.5-14.5)
[2020-09-14 23:00] LABS: COLLECTION METHOD CATHETER
[2020-09-14 23:03] LABS: ALANINE AMINOTRANSFERASE 9 U/L (4-49); ALBUMIN 3.6 gm/dL (3.5-5.0); ALKALINE PHOSPHATASE 83 U/L (50-136); ANION GAP -2 mmol/L (7-16); AST,SGOT 19 U/L (15-37); BILIRUBIN,TOTAL 0.7 mg/dL (0.0-1.0); BLOOD UREA NITROGEN 11 mg/dL (9-20); C-REACTIVE PROTEIN 2.8 mg/dL (0.0-0.9); CALCIUM 9.3 mg/dL (8.4-10.2); CARBON DIOXIDE 26 mmol/L (22-30); CHLORIDE 100 mmol/L (98-107); CREATININE, serum 0.52 (0.66-1.25); GLUCOSE 101 mg/dL (74-106); POTASSIUM 4.2 mmol/L (3.4-5.0); SODIUM 124 mmol/L (137-145)
[2020-09-14 23:13] LABS: PH 7 (5-8); SQUAMOUS EPITHELIAL 0-2 /hpf; URINE APPEARANCE Clear; URINE BACTERIA None Seen /hpf; URINE BILIRUBIN Negative (NEGATIVE); URINE BLOOD Negative (NEGATIVE); URINE COLOR Yellow; URINE GLUCOSE Negative (NEGATIVE); URINE KETONE Negative (NEGATIVE); URINE LEUKOCYTE ESTERASE 2+ (NEGATIVE); URINE NITRATE Negative (NEGATIVE); URINE PROTEIN(semi-quant) Negative (NEGATIVE); URINE UROBILINOGEN Negative (NEGATIVE)
[2020-09-14 23:25] LABS: TROPONIN-I < 0.012 ng/mL (0.000-0.035)
[2020-09-15] MEDS ORDERED: CLEOCIN HCL300 MG PEG (00:38)
[2020-09-15] MEDS ORDERED: CEFTIN500 MG PEG (00:38)
[2020-09-15 01:23] VITALS: BP 150/93; PULSE 84; TEMP 98.6
== END 2020-09-15 01:26 | disposition home or self-care (01) ==
LOC: COL.ER 21:56
PROVIDERS: Emergency Medicine
DX: R06.02 Shortness of breath (principal); E87.1 Hypo-osmolality and hyponatremia; K94.23 Gastrostomy malfunction; N39.0 Urinary tract infection, site not specified; G35 Multiple sclerosis; G40.909 Epilepsy, unspecified, not intractable, without status epilepticus; I10 Essential (primary) hypertension; E03.9 Hypothyroidism, unspecified; I48.91 Unspecified atrial fibrillation; Z87.891 Personal history of nicotine dependence; Z79.899 Other long term (current) drug therapy
CPT/HCPCS: J0696; J1644; J7030

== ENCOUNTER 2020-09-16 23:31 | Emergency (ER) | payer MEDICARE, BC ==
[~2020-09-16] VITALS: Ht 172.7 cm; Wt 81.8 kg
[~2020-09-16 23:31] MED LIST changes: +CEFTIN500 MG PEG; +CLEOCIN HCL300 MG PEG
[2020-09-16 23:37] VITALS: TEMP 98
[2020-09-17 00:10] VITALS: BP 132/70; PULSE 74
== END 2020-09-17 00:10 | disposition home or self-care (01) ==
LOC: COL.ER 23:31
DX: K94.23 Gastrostomy malfunction (principal); I10 Essential (primary) hypertension; E03.9 Hypothyroidism, unspecified; I48.91 Unspecified atrial fibrillation

== ENCOUNTER 2021-03-12 16:23 | Emergency (ER) | payer MEDICARE, BC ==
[~2021-03-12] VITALS: Ht 182.9 cm; Wt 68.2 kg
[2021-03-12 16:33] VITALS: TEMP 98.6
[2021-03-12 16:44] LABS: COLLECTION METHOD CATHETER
[2021-03-12 17:03] LABS: PH 7 (5-8); SQUAMOUS EPITHELIAL 0-2 /hpf (0-10); URINE APPEARANCE Cloudy (CLEAR/HAZY); URINE BACTERIA Rare (NONE SEEN); URINE BILIRUBIN Negative (NEGATIVE); URINE BLOOD 2+ (NEGATIVE); URINE COLOR Yellow (YELLOW); URINE GLUCOSE Negative (NEGATIVE); URINE KETONE Trace (NEGATIVE); URINE LEUKOCYTE ESTERASE 3+ (NEGATIVE); URINE NITRATE Negative (NEGATIVE); URINE PROTEIN(semi-quant) 2+ (NEGATIVE); URINE RBC >50 /hpf (0-2); URINE UROBILINOGEN Negative (NEGATIVE)
[2021-03-12 17:23] LABS: BASO % 0.3 % (0.0-2.0); EOS # 0.1 K/mm3 (0.0-0.7); EOS % 0.5 % (0-4.0); HEMATOCRIT 47.2 % (42.0-52.0); HEMOGLOBIN 16.4 g/dl (13.5-18.0); LYMPH # 2.5 K/mm3 (1.2-3.4); MEAN CELL VOLUME 89 fl (80.0-100.0); MEAN CORPUSCULAR HEMOGLOBIN 31 pg (27.0-31.0); MEAN CORPUSCULAR HGB CONC 35 g/dl (33.0-37.0); MEAN PLATELET VOLUME 9.3 fl (7.4-10.4); MONO % 6.8 % (1.7-9.3); PLATELET COUNT 160 K/mm3 (130-400); RED BLOOD COUNT 5.29 M/mm3 (4.20-5.60); REDCELL DISTRIBUTION WIDTH-CV 12.2 % (11.5-14.5)
[2021-03-12 17:32] LABS: ALBUMIN 3.7 gm/dL (3.4-4.8); BILIRUBIN,TOTAL 1.2 mg/dL (0.2-1.2); C-REACTIVE PROTEIN 0.9 mg/dL (0.00-0.50); CALCIUM 9.5 mg/dL (8.4-10.2); CREATININE, serum 0.78 mg/dL (0.72-1.25); POTASSIUM 4.4 mmol/L (3.5-4.5); TOTAL PROTEIN 7.5 gm/dL (6.2-8.1)
[2021-03-12] MEDS ORDERED: CEFTIN500 MG PO (17:49)
[2021-03-12 18:31] VITALS: BP 172/103; PULSE 95
== END 2021-03-12 18:31 | disposition home or self-care (01) ==
LOC: COL.ER 16:23
PROVIDERS: Emergency Medicine
DX: N39.0 Urinary tract infection, site not specified (principal); I10 Essential (primary) hypertension; E03.9 Hypothyroidism, unspecified; Z88.0 Allergy status to penicillin; Z79.899 Other long term (current) drug therapy
CPT/HCPCS: J0696; J7030

== ENCOUNTER 2021-06-10 12:27 | Emergency (ER) | payer MEDICARE, BC ==
[~2021-06-10 12:27] MED LIST changes: +CEFTIN500 MG PO
[2021-06-10 13:06] VITALS: BP 150/72; PULSE 80; TEMP 97.5
== END 2021-06-10 13:29 | disposition home or self-care (01) ==
LOC: COL.ER 12:27
DX: R56.9 Unspecified convulsions (principal)

== ENCOUNTER → 2021-06-21 | Outpatient (CLI) | payer MEDICARE, BC | LOC: COL.RAD 13:49 | DX: N20.0 Calculus of kidney (principal) | CPT/HCPCS: Q9967 ==

== ENCOUNTER 2021-08-17 14:26 | Emergency (ER) | payer MEDICARE, BC ==
[~2021-08-17] VITALS: Ht 182.9 cm; Wt 65.9 kg
[2021-08-17 14:44] VITALS: BP 144/82; PULSE 61; TEMP 97
== END 2021-08-17 15:30 | disposition home or self-care (01) ==
LOC: COL.ER 14:26
DX: K94.23 Gastrostomy malfunction (principal); Z90.49 Acquired absence of other specified parts of digestive tract

== ENCOUNTER 2023-04-14 16:56 | Emergency (ER) | payer MEDICARE, BC ==
[~2023-04-14] VITALS: Ht 182.9 cm; Wt 68.2 kg
[2023-04-14 17:01] VITALS: TEMP 98.6
[2023-04-14] MEDS ORDERED: LEVAQUIN 5500 MG/TA1 PO (17:09)
[2023-04-14 18:28] LABS: BASO % 0.2 % (0.0-2.0); EOS % 0.1 % (0.0-4.0); GRAN # 9.1 K/mm3 (1.4-6.5); GRAN % 73.1 % (42.2-75.2); HEMATOCRIT 41.8 % (42.0-52.0); HEMOGLOBIN 14.7 g/dl (13.5-18.0); LYMPH # 2.2 K/mm3 (1.2-3.4); LYMPH % 17.4 % (20.0-51.0); MEAN CELL VOLUME 89 fl (80.0-100.0); MEAN CORPUSCULAR HEMOGLOBIN 31 pg (27-31); MEAN CORPUSCULAR HGB CONC 35 g/dl (33.0-37.0); MEAN PLATELET VOLUME 8.7 fl (7.4-10.4); MONO # 1.1 K/mm3 (0.1-0.6); MONO % 8.6 % (1.7-9.3); PLATELET COUNT 150 K/mm3 (130-400); RED BLOOD COUNT 4.71 M/mm3 (4.20-5.60); REDCELL DISTRIBUTION WIDTH-CV 12.4 % (11.5-14.5)
[2023-04-14 18:44] LABS: ALBUMIN 2.8 gm/dL (3.4-4.8); BILIRUBIN,TOTAL 1.1 mg/dL (0.2-1.2); CALCIUM 9.6 mg/dL (8.4-10.2); CREATININE, serum 0.77 mg/dL (0.72-1.25); POTASSIUM 4.3 mmol/L (3.5-4.5)
[2023-04-14 18:51] VITALS: BP 169/80; PULSE 81
== END 2023-04-14 18:51 | disposition home or self-care (01) ==
LOC: COL.ER 16:56
PROVIDERS: Family Medicine
DX: U07.1 COVID-19 (principal); R09.81 Nasal congestion; R05.9 Cough, unspecified; G35 Multiple sclerosis

== ENCOUNTER 2023-05-19 05:26 | Inpatient (IN) | payer MEDICARE, BC ==
[~2023-05-19] VITALS: Ht 182.9 cm; Wt 74.7 kg
[~2023-05-19 05:26] MED LIST changes: +ARMOUR THYROID60 MG PEG
[2023-05-19] MEDS ORDERED: NS 1,000 ML IV SCH ×2 (06:00→08:30)
[2023-05-19] MEDS ORDERED: Cefepime 1 G in Water For Injection,Sterile 10 ML IV ONE (06:00)
[2023-05-19 06:15] LABS: HEMATOCRIT 44.2 % (42.0-52.0); HEMOGLOBIN 14.7 g/dl (13.5-18.0); MEAN CELL VOLUME 94 fl (80.0-100.0); MEAN CORPUSCULAR HEMOGLOBIN 31 pg (27-31); MEAN CORPUSCULAR HGB CONC 33 g/dl (33.0-37.0); MEAN PLATELET VOLUME 8.7 fl (7.4-10.4); PLATELET COUNT 163 K/mm3 (130-400); REDCELL DISTRIBUTION WIDTH-CV 13.4 % (11.5-14.5)
[2023-05-19 06:34] LABS: ALBUMIN 3.3 gm/dL (3.4-4.8); BILIRUBIN,TOTAL 0.9 mg/dL (0.2-1.2); CALCIUM 9.8 mg/dL (8.4-10.2); CREATININE, serum 0.7 mg/dL (0.72-1.25); POTASSIUM 4.2 mmol/L (3.5-4.5); TOTAL PROTEIN 7.4 gm/dL (6.2-8.1)
[2023-05-19 07:11] LABS: BAND 6 % (0-10); LYMPHOCYTE 1 % (20.0-51.0); NEUTROPHILS 91 % (42.0-75.2); PLATELET ESTIMATE NORMAL (NORMAL)
[2023-05-19 07:31] LABS: COLLECTION METHOD CATHETER
[2023-05-19 07:58] LABS: URINE COLOR Yellow (YELLOW)
[2023-05-19 07:59] LABS: AMORPHOUS CRYSTAL Present (NOT PRESENT); PH 7.5 (5.0-8.5); SQUAMOUS EPITHELIAL 0-2 /hpf (0-10); URINE APPEARANCE Hazy (CLEAR/HAZY); URINE BACTERIA Rare /hpf (NONE SEEN); URINE BLOOD TRACE-INTACT (NEGATIVE); URINE GLUCOSE Negative (NEGATIVE); URINE KETONE 1+ (NEGATIVE); URINE NITRATE Negative (NEGATIVE); URINE PROTEIN(semi-quant) 1+ (BEGATIVE); URINE RBC 0-2 /hpf (0-2)
[2023-05-19] MEDS ORDERED: Ondansetron 4 MG/2 ML VIAL IV PRN (08:15)
[2023-05-19] MEDS ORDERED: Polyethylene Glycol 3350 17 GM PDS PO PRN (08:15)
[2023-05-19] MEDS ORDERED: Acetaminophen 500 MG TAB PO PRN (08:15)
[2023-05-19] MEDS ORDERED: D5NS & 20 mEq KCl 1,000 ML IV SCH (10:15)
[2023-05-19 12:28] VITALS: BP 152/48; PULSE 113; TEMP 98.8
[2023-05-19] MEDS ORDERED: Cefepime 1 G in Water For Injection,Sterile 10 ML IV SCH (13:00)
--- NOTE | 2023-05-19 13:25 | NUR ---
ADMISSION INTAKE AND ASSESSMENT. MED REC UPDATED. PATIENTS AND SON ARE AT BEDSIDE AND ARE ABLE TO ANSWER ADMISSION QUESTIONS. PATIENT HAS HIS PERSONAL WHEELCHAIR AND LIFT IN THE ROOM BATHROOM (PATIENT WRISTBAND PLACED ON THE LIFT ARM). CROWLEY CATHETER WAS PLACED, DRAINING CLEAR YELLOW URINE. PATIENT'S EXTREMITIES ARE PURPLE AND COOL TO THE TOUCH, PATIENT STATES THIS IS NORMAL FOR HIM. PATIENTS FAMILY WAS ORIENTED TO ROOM. IVF INFUSING. WILL CONTINUE TO MONITOR.
[2023-05-19] MEDS ORDERED: DEPAKENE250 MG PEG (13:46)
[2023-05-19] MEDS ORDERED: COZAAR 50MG50 MG/TAB PEG (13:47)
[2023-05-19] MEDS ORDERED: LOPRESSOR 225 MG/TAB PEG (13:47)
[2023-05-19] MEDS ORDERED: BIOTIN PEG (13:53)
[2023-05-19] MEDS ORDERED: ONE-A-DAY ESSE1 EACH PEG (13:55)
[2023-05-19] MEDS ORDERED: PROBIOTIC PEG (14:00)
[2023-05-19] MEDS ORDERED: PHARMASSURE ZIN50 MG PEG (14:00)
[2023-05-19] MEDS ORDERED: CALCIUM/MAGNESI1 TAB PEG (14:09)
[2023-05-19] MEDS ORDERED: Metoprolol Tartrate 25 MG TAB PO SCH (14:21)
[2023-05-19] MEDS ORDERED: Valproate Oral Soln 250 MG/5 ML UD PEG SCH ×2 (14:25→21:00)
[2023-05-19 15:45] VITALS: BP 151/91; PULSE 136; TEMP 100.8
[2023-05-19] MEDS ORDERED: Valproate Oral Soln 250 MG/5 ML UD PO ONE (16:35)
[2023-05-19 17:34] VITALS: BP_SYST 151
--- NOTE | 2023-05-19 19:45 | NUR ---
Received report from DAVIN Wilburn. Pt is resting in bed with at bed side. Pt has NS running at this time. Pt does not look indistress at this time. Will continue with pt care.
[2023-05-19 21:00] VITALS: BP_SYST 131
[2023-05-19] MEDS ORDERED: Patient's Own Medication Item PO SCH (21:00)
[2023-05-19 21:05] VITALS: BP 131/68; PULSE 81; TEMP 98.1
[2023-05-20] VITALS (11 sets, daily range): BP systolic 119–167; BP diastolic 71–84; PULSE 72–97; TEMP 97.6–98.4
--- NOTE | 2023-05-20 06:18 | NUR ---
Pt had an uneventful night. Pt is resting in bed with at bedside. Pt is room air and has a cowan in place. Repositioned pt frequently. NS running at this time. Will give report to day shift nurse.
[2023-05-20 06:50] LABS: BASO % 0.1 % (0.0-2.0); EOS % 0.1 % (0.0-4.0); GRAN % 83.7 % (42.2-75.2); LYMPH # 1.7 K/mm3 (1.2-3.4); LYMPH % 10.4 % (20.0-51.0); MEAN CORPUSCULAR HGB CONC 34 g/dl (33.0-37.0); MEAN PLATELET VOLUME 8.8 fl (7.4-10.4); MONO # 0.9 K/mm3 (0.1-0.6); MONO % 5.3 % (1.7-9.3); PLATELET COUNT 138 K/mm3 (130-400); RED BLOOD COUNT 4.02 M/mm3 (4.20-5.60); REDCELL DISTRIBUTION WIDTH-CV 13.6 % (11.5-14.5)
[2023-05-20 06:59] LABS: HEMATOCRIT 36.6 % (42.0-52.0); HEMOGLOBIN 12.5 g/dl (13.5-18.0); MEAN CORPUSCULAR HEMOGLOBIN 31 pg (27-31)
[2023-05-20 07:00] LABS: MEAN CELL VOLUME 91 fl (80.0-100.0)
[2023-05-20 07:14] LABS: CALCIUM 9.4 mg/dL (8.4-10.2); CREATININE, serum 0.65 mg/dL (0.72-1.25)
--- NOTE | 2023-05-20 08:59 | NUR ---
PATIENT RESTING IN BED UPON ENTERING ROOM, AT BEDSIDE. MORNING MEDICATIONS ADMINISTERED VIA PEG TUBE WITH 'S ASSISSTANCE. IS COMPLETING TUBE FEEDING AT THIS TIME. PATIENTS EYES ARE OPEN THIS MORNING, HE IS ABLE TO COUGH UP SOME SECRETIONS, SUCTIONED OUT WITH YAUNKER. SPECIALTY BED ORDERED. WILL CONTINUE TO MONITOR.
[2023-05-20] MEDS ORDERED: Thyroid, Desiccated 60 MG TAB PO SCH (09:00)
[2023-05-20] MEDS ORDERED: Losartan 50 MG TAB PO SCH (09:00)
[2023-05-20] MEDS ORDERED: Patient's Own Medication Item PO SCH (09:00)
--- NOTE | 2023-05-20 13:03 | NUR ---
PATIENT TRANSFERRED FROM BED TO PERSONAL WHEELCHAIR. SPECIALTY BED PLACED IN ROOM. REQUESTS THAT PATIENT STAY UP IN WHEELCHAIR UNTIL THIS EVENING.
[2023-05-20] MEDS ORDERED: NATURE'S B5000 IU/ML PEG (13:52)
--- NOTE | 2023-05-20 14:34 | NUR ---
D: Initial visit: Government Professor stopped by room on rounds. Pt was resting and content with family in the room. A: Family mentioned needing prayer for the road ahead, prayer for doctors to find where the infection is. Government Professor prayed with pt and family. The visit and prayer was appreciated. P: Government Professor informed family that if they needed anything from the promotional model area to let their nurse know. Government Professor will follow up as needed.
--- NOTE | 2023-05-20 15:46 | NUR ---
Clerk met with patient and his , Julia (ph#[phone]) to discuss discharge planning. Patient lives at home on a farm outside of [place]. Julia is his caregiver and provides total assistance with ADLS. Patient sees Dr. Bartlett for primary care and his medications are filled at either [facility] or [facility]. Patient has a lift for transfers and all needed DME at home. Patient has tube feeds and gets his supplies through [facility]. Patient also has to be cathed, which Julia does for him. Julia is the primary caregiver but has some assistance from Magdiel, their son (ph#[phone]) who lives in a separate home but also on their farm. Patient also has a hired friend, Darryl Leal who comes in once a week to relieve her. Patient also has recently hired another helper for assistance as needed. Julia advised she is patient's DPOA-HC. Discharge Plan: Home with current level of support
--- NOTE | 2023-05-20 18:50 | NUR ---
PATIENT RESTING IN BED WITH AT BEDSIDE. NO ACUTE DISTRESS NOTED. PATIENT ON ROOM AIR. CROWLEY CATH INTACT AND DRAINING CLEAR YELLOW URINE. PATIENT CARE ASSUMED FROM BEENA RN. NO NEEDS EXPRESSED AT THIS TIME. BED IN LOW POSITION WITH WHEELS LOCKED WITH RAILS UP X3 AND CALL LIGHT WITHIN REACH.
--- NOTE | 2023-05-20 21:40 | NUR ---
PATIENT RESTING IN BED WITH AT BEDSIDE WITH TV OFF WITH NO ACUTE DISTRESS NOTED. PATIENT ON ROOM AIR. INT TO LEFT WIRST INTACT. CROWLEY CATH INTACT AND DRAINING CLEAR YELLOW URINE. PEG TUBE INTACT. ASSESSMENT AND MEDICATION ADMINISTRATION COMPLETED AT THIS TIME. PATIENT TOELRATED WELL. ALL NEEDS MET. BED IN LOW POSITION WITH WHEELS LOCKED WITH RAILS UP X3 AND CALL LIGHT WITHIN REACH.
[2023-05-21] VITALS (12 sets, daily range): BP systolic 113–146; BP diastolic 74–89; PULSE 67–91; TEMP 97.4–98.5
[2023-05-21 07:12] LABS: BASO % 0.3 % (0.0-2.0); EOS # 0.1 K/mm3 (0.0-0.7); EOS % 0.5 % (0.0-4.0); GRAN # 6.9 K/mm3 (1.4-6.5); GRAN % 65.2 % (42.2-75.2); HEMATOCRIT 39.7 % (42.0-52.0); HEMOGLOBIN 13.4 g/dl (13.5-18.0); LYMPH # 2.8 K/mm3 (1.2-3.4); MEAN CELL VOLUME 93 fl (80.0-100.0); MEAN CORPUSCULAR HEMOGLOBIN 31 pg (27-31); MEAN CORPUSCULAR HGB CONC 34 g/dl (33.0-37.0); MEAN PLATELET VOLUME 8.9 fl (7.4-10.4); MONO # 0.8 K/mm3 (0.1-0.6); MONO % 7.6 % (1.7-9.3); PLATELET COUNT 156 K/mm3 (130-400); RED BLOOD COUNT 4.29 M/mm3 (4.20-5.60); REDCELL DISTRIBUTION WIDTH-CV 13.6 % (11.5-14.5)
[2023-05-21 07:14] LABS: CALCIUM 9.4 mg/dL (8.4-10.2); CREATININE, serum 0.71 mg/dL (0.72-1.25); POTASSIUM 3.9 mmol/L (3.5-4.5)
--- NOTE | 2023-05-21 18:40 | NUR ---
PATIENT RESTING IN BED LYING ON RIGHT SIDE WITH NO ACUTE DISTRESS NOTED. PATIENT ON ROOM AIR. AT BEDSIDE. INT TO RIGHT WRIST INTACT WITH NO COMPLICATIONS NOTED. CROWLEY CATH INTACT AND DRAINING CLEAR YELLOW URINE. PEG TUBE CLAMPED, INTACT, AND PATENT. PATIENT DENIES ANY NEEDS AT THIS TIME. PATIENT CARE ASSUMED FROM DEEPAKORSLOAN AT THIS TIME. BED IN LOW POSITION WITH WHEELS LOCKED WITH RAILS UP X3 AND CALL LIGHT WITHIN REACH.
--- NOTE | 2023-05-21 19:39 | NUR ---
PATIENT RESTING IN BED LYING ON LEFT SIDE WITH HEAD OF BED ELEVATED WITH NO ACUTE DISTRESS NOTED. PATIENT ON ROOM AIR. TELEMETRY INTACT. INT TO RIGHT WRIST INTACT WITH NO COMPLICATIONS NOTED. CROWLEY CATH INTACT, PATENT, AND DRAINING CLEAR YELLOW URINE. ASSESSMENT COMPLETED AT THIS TIME. REQUESTED PATIENT BE REPOSITIONED TO BACK SO SHE COULD FEED HIM. VERBALIZED THAT PRIMARY NURSE WOULD FIND HELP AND REPOSITION PATIENT. DENIES ANY OTHER NEEDS AT THIS TIME. BED IN LOW POSITION WITH WHEELS LOCKED WITH RAILS UP X3 AND CALL LIGHT WITHIN REACH.
--- NOTE | 2023-05-21 20:10 | NUR ---
PATIENT PLACED ON BACK AND PULLED UP IN BED PER 'S PRIOR REQUEST. MEDICATION ADMINISTRATION COMPLETED AT THIS TIME. PATIENT TOLERATED WELL. DENIES ANY NEEDS AT THIS TIME. BED IN LOW POSITION WITH WHEELS LOCKED WITH RAILS UP X3 AND CALL LIGHT WITHIN REACH.
[2023-05-22 00:05] VITALS: BP_SYST 113
[2023-05-22 03:30] VITALS: BP 150/85; PULSE 72; TEMP 98
[2023-05-22 04:15] VITALS: BP_SYST 150
[2023-05-22 07:44] VITALS: BP 144/85; PULSE 75; TEMP 97.5
[2023-05-22 07:55] LABS: BASO % 0.4 % (0.0-2.0); EOS # 0.1 K/mm3 (0.0-0.7); EOS % 1.6 % (0.0-4.0); GRAN # 4.3 K/mm3 (1.4-6.5); GRAN % 57.1 % (42.2-75.2); HEMATOCRIT 38.3 % (42.0-52.0); HEMOGLOBIN 13.1 g/dl (13.5-18.0); LYMPH # 2.6 K/mm3 (1.2-3.4); MEAN CELL VOLUME 90 fl (80.0-100.0); MEAN CORPUSCULAR HEMOGLOBIN 31 pg (27-31); MEAN CORPUSCULAR HGB CONC 34 g/dl (33.0-37.0); MONO # 0.5 K/mm3 (0.1-0.6); MONO % 6.5 % (1.7-9.3); PLATELET COUNT 152 K/mm3 (130-400); RED BLOOD COUNT 4.24 M/mm3 (4.20-5.60); REDCELL DISTRIBUTION WIDTH-CV 13.4 % (11.5-14.5)
[2023-05-22 08:10] LABS: CALCIUM 9.6 mg/dL (8.4-10.2); CREATININE, serum 0.62 mg/dL (0.72-1.25); POTASSIUM 4.1 mmol/L (3.5-4.5)
[2023-05-22] MEDS ORDERED: CEPHALEXIN500 M1 PO (08:42)
--- NOTE | 2023-05-22 09:01 | NUR ---
Orientation & Mobility Specialist followed on clinical rounds and patient is ready for discharge today. SW met with patient's , Julia at bedside and presented IM form. Julia verbalized understanding of patient's rights and provided signature. SW placed form in chart. Julia declined copy. Discharge Plan: Home
--- NOTE | 2023-05-22 10:00 | NUR ---
PATIENT RECEIVED DISCHARGE PAPERWORK. ACKNOWLEDGED UNDERSTNADING OF FOLLOW UP APPOINMENTS. PATIENT DISCHARGED WITH , SON, AND NURSING STAFF. IV DISCONTINUED, CROWLEY DISCONTINUED.
== END 2023-05-22 10:30 | disposition home or self-care (01) | DRG 872 ==
LOC: COL.ER 05:26 → MEDICAL 07:07
PROVIDERS: Personal Emergency Response Attendant; Physician Assistant; ADMIT Internal Medicine
DX: A41.9 Sepsis, unspecified organism (principal); E87.1 Hypo-osmolality and hyponatremia; D84.9 Immunodeficiency, unspecified; I10 Essential (primary) hypertension; G35 Multiple sclerosis; G40.909 Epilepsy, unspecified, not intractable, without status epilepticus; Z66 Do not resuscitate; E03.9 Hypothyroidism, unspecified; I48.91 Unspecified atrial fibrillation; Z20.822 Contact with and (suspected) exposure to COVID-19; R53.81 Other malaise; S91.301A Unspecified open wound, right foot, initial encounter; Z90.49 Acquired absence of other specified parts of digestive tract; Z88.1 Allergy status to other antibiotic agents; Z88.8 Allergy status to other drugs, medicaments and biological substances; Z99.3 Dependence on wheelchair; Z87.440 Personal history of urinary (tract) infections; Z93.1 Gastrostomy status; Z79.899 Other long term (current) drug therapy
CPT/HCPCS: J0692; J7030

== ENCOUNTER 2023-10-10 08:29 | Emergency (ER) | payer MEDICARE, BC ==
[~2023-10-10] VITALS: Ht 182.9 cm; Wt 72.7 kg
[~2023-10-10 08:29] MED LIST changes: +CALCIUM/MAGNESI1 TAB PEG; +CEPHALEXIN500 M1 PO; +COZAAR 50MG50 MG/TAB PEG; +DEPAKENE250 MG PEG; +LOPRESSOR 225 MG/TAB PEG; +NATURE'S B5000 IU/ML PEG; +NYSTATIN100000 U/1 TOP; +ONE-A-DAY ESSE1 EACH PEG; +PHARMASSURE ZIN50 MG PEG; +PROBIOTIC PEG
[2023-10-10 08:35] VITALS: TEMP 99.4
[2023-10-10] MEDS ORDERED: NS 1,000 ML IV ONE (09:00)
[2023-10-10 09:08] LABS: COLLECTION METHOD CATHETER
[2023-10-10 09:26] LABS: BASO % 0.2 % (0.0-2.0); EOS % 0.1 % (0.0-4.0); GRAN # 13.7 K/mm3 (1.4-6.5); GRAN % 84.9 % (42.2-75.2); HEMATOCRIT 41.8 % (42.0-52.0); HEMOGLOBIN 14.1 g/dl (13.5-18.0); LYMPH # 1.1 K/mm3 (1.2-3.4); LYMPH % 6.8 % (20.0-51.0); MEAN CELL VOLUME 90 fl (80.0-100.0); MEAN CORPUSCULAR HEMOGLOBIN 30 pg (27-31); MEAN CORPUSCULAR HGB CONC 34 g/dl (33.0-37.0); MEAN PLATELET VOLUME 8.8 fl (7.4-10.4); MONO # 1.2 K/mm3 (0.1-0.6); MONO % 7.6 % (1.7-9.3); PLATELET COUNT 149 K/mm3 (130-400); RED BLOOD COUNT 4.64 M/mm3 (4.20-5.60); REDCELL DISTRIBUTION WIDTH-CV 13.6 % (11.5-14.5)
[2023-10-10 09:32] LABS: PH 7.5 (5.0-8.5); URINE APPEARANCE CLEAR (CLEAR/HAZY); URINE BLOOD 2+ (NEGATIVE); URINE COLOR YELLOW (YELLOW); URINE GLUCOSE NEGATIVE (NEGATIVE); URINE KETONE NEGATIVE (NEGATIVE); URINE NITRATE NEGATIVE (NEGATIVE); URINE PROTEIN(semi-quant) NEGATIVE (NEGATIVE); URINE UROBILINOGEN 0.2 E.U/dL (0.2-1.0)
[2023-10-10 10:48] LABS: ALBUMIN 3.3 g/dL (3.4-4.8); BILIRUBIN,TOTAL 1.1 mg/dL (0.2-1.2); CALCIUM 9.6 mg/dL (8.4-10.2); CREATININE, serum 0.63 mg/dL (0.72-1.25); POTASSIUM 3.8 mEq/L (3.5-4.5); TOTAL PROTEIN 6.8 g/dl (6.2-8.1)
[2023-10-10 11:01] VITALS: BP 138/98; PULSE 112
[2023-10-10] MEDS ORDERED: LEVAQUIN 5500 MG/TA1 PEG (11:06)
== END 2023-10-10 11:24 | disposition home or self-care (01) ==
LOC: COL.ER 08:29
PROVIDERS: Personal Emergency Response Attendant
DX: D72.829 Elevated white blood cell count, unspecified (principal)
CPT/HCPCS: J1956; J7030

== ENCOUNTER 2023-10-17 12:49 | Inpatient (IN) | payer MEDICARE, BC ==
[~2023-10-17] VITALS: Ht 175.3 cm; Wt 72.7 kg
[2023-10-17] MEDS ORDERED: Acetaminophen Oral Susp 325 MG/10.15 ML UD PO ONE (13:15)
[2023-10-17] MEDS ORDERED: NS 1,000 ML IV ONE (13:15)
[2023-10-17 14:17] LABS: BASO % 0.2 % (0.0-2.0); GRAN # 17.4 K/mm3 (1.4-6.5); GRAN % 89.6 % (42.2-75.2); HEMATOCRIT 38.7 % (42.0-52.0); HEMOGLOBIN 13.3 g/dl (13.5-18.0); LYMPH # 0.6 K/mm3 (1.2-3.4); LYMPH % 3.3 % (20.0-51.0); MEAN CELL VOLUME 88 fl (80.0-100.0); MEAN CORPUSCULAR HEMOGLOBIN 30 pg (27-31); MEAN CORPUSCULAR HGB CONC 34 g/dl (33.0-37.0); MEAN PLATELET VOLUME 8.8 fl (7.4-10.4); MONO # 1.2 K/mm3 (0.1-0.6); MONO % 6.1 % (1.7-9.3); PLATELET COUNT 193 K/mm3 (130-400); RED BLOOD COUNT 4.39 M/mm3 (4.20-5.60); REDCELL DISTRIBUTION WIDTH-CV 13.5 % (11.5-14.5)
[2023-10-17 14:24] LABS: COLLECTION METHOD CATHETER
[2023-10-17 14:24] LABS: ALBUMIN 2.9 g/dL (3.4-4.8); BILIRUBIN,TOTAL 1.1 mg/dL (0.2-1.2); C-REACTIVE PROTEIN 11.09 mg/dL (0.00-0.50); CALCIUM 9.7 mg/dL (8.4-10.2); CREATININE, serum 0.74 mg/dL (0.72-1.25); POTASSIUM 4.1 mEq/L (3.5-4.5); TOTAL PROTEIN 6.9 g/dl (6.2-8.1)
[2023-10-17 14:35] LABS: PH 8.5 (5.0-8.5); URINE APPEARANCE CLEAR (CLEAR/HAZY); URINE BLOOD NEGATIVE (NEGATIVE); URINE COLOR YELLOW (YELLOW); URINE GLUCOSE NEGATIVE (NEGATIVE); URINE KETONE TRACE (NEGATIVE); URINE NITRATE NEGATIVE (NEGATIVE); URINE PROTEIN(semi-quant) TRACE (NEGATIVE)
[2023-10-17] MEDS ORDERED: Ondansetron 4 MG/2 ML VIAL IV PRN (15:00)
[2023-10-17] MEDS ORDERED: Docusate Sodium 100 MG CAP PO PRN (15:00)
[2023-10-17] MEDS ORDERED: Acetaminophen 325 MG TAB PO PRN (15:00)
[2023-10-17] MEDS ORDERED: Polyethylene Glycol 3350 17 GM PDS PO PRN (15:00)
[2023-10-17] MEDS ORDERED: cefTRIAXone 1 G in Water For Injection,Sterile 10 ML IV ONE (15:00)
[2023-10-17] MEDS ORDERED: LR 1,000 ML IV SCH (15:00)
[2023-10-17] MEDS ORDERED: D BIOTIN PEG (15:25)
[2023-10-17] MEDS ORDERED: LOPRESSOR 225 MG/TAB PO (15:28)
[2023-10-17 17:00] VITALS: BP_SYST 112
--- NOTE | 2023-10-17 17:00 | NUR ---
PATIENT ARRIVED TO UNIT, VSS, RESPIRATIONS WNL, CROWLEY PATENT AND DRAINING DARK YELLOW URINE. PATIENTS CALL LIGHT WITHIN REACH. CURRENTLY SITTING UP IN HIS CHAIR WITH HIS AT BEDSIDE.
--- NOTE | 2023-10-17 19:00 | NUR ---
PATIENT TRANSFERED TO BED. CALL LIGHT WITHIN REACH. PATIENTS AT BEDSIDE. FALL PRECAUTIONS IN PLACE, AIR MATRESS ON.
[2023-10-17 20:14] VITALS: BP 122/80; PULSE 84; TEMP 98.2
--- NOTE | 2023-10-17 20:30 | NUR ---
Assessment complete. Patient to be repositioned Q2H max assist. Spouse remains at bedside doing peg tube feed. States she will call when complete in order to get patient repositioned in bed. Will monitor.
[2023-10-17 21:00] VITALS: BP_SYST 122
[2023-10-17] MEDS ORDERED: Nystatin 100,000 Units/GM Cream 15 GM TUBE TP SCH (21:00)
[2023-10-17] MEDS ORDERED: Valproate Oral Soln 250 MG/5 ML UD PO SCH (21:00)
[2023-10-17] MEDS ORDERED: Patient's Own Medication Item PEG SCH (21:00)
--- NOTE | 2023-10-17 22:30 | NUR ---
Repositioned in bed at this time to right side with two max assist with pillow support. Spouse is at bedside for instruction on best positioning. Nam cath with clear yellow urine. Peg tube feeds being completed by spouse. Instructed that we would be back in at 0030 to do vitals and reposition to left side. Verbalizes understanding. Call light in reach. Will monitor.
[2023-10-18] VITALS (12 sets, daily range): BP systolic 106–160; BP diastolic 68–84; PULSE 73–113; TEMP 96.7–98.9
--- NOTE | 2023-10-18 00:42 | NUR ---
Repositioned at this time with 2 max assist to left side with pillow support. Will monitor.
--- NOTE | 2023-10-18 02:09 | NUR ---
Noted to have received one dose of clindamycin in ED with H&P stating to continue but no order to continue. Spoke with MONAE Xie and new orders received and initiated.
--- NOTE | 2023-10-18 02:52 | NUR ---
Repositioned in bed at this time to right side with pillow support-2 assist. remains at bedside.
--- NOTE | 2023-10-18 05:08 | NUR ---
Repositioned in bed at this time 2 assist to left side with pillow support. Spouse remains at bedside. Spouse completed peg tube feeding this shift. Requested to give meds as well. Denies current needs. Call light in reach. Will monitor.
[2023-10-18 06:20] LABS: BASO % 0.2 % (0.0-2.0); EOS % 0.1 % (0.0-4.0); GRAN # 11.6 K/mm3 (1.4-6.5); GRAN % 77.3 % (42.2-75.2); HEMOGLOBIN 11.4 g/dl (13.5-18.0); LYMPH # 2.1 K/mm3 (1.2-3.4); MEAN CELL VOLUME 91 fl (80.0-100.0); MEAN CORPUSCULAR HEMOGLOBIN 31 pg (27-31); MEAN CORPUSCULAR HGB CONC 34 g/dl (33.0-37.0); MEAN PLATELET VOLUME 8.4 fl (7.4-10.4); MONO # 1.2 K/mm3 (0.1-0.6); MONO % 7.6 % (1.7-9.3); PLATELET COUNT 165 K/mm3 (130-400); RED BLOOD COUNT 3.72 M/mm3 (4.20-5.60); REDCELL DISTRIBUTION WIDTH-CV 13.6 % (11.5-14.5)
[2023-10-18 06:23] LABS: HEMATOCRIT 33.8 % (42.0-52.0)
--- NOTE | 2023-10-18 06:35 | NUR ---
Spoke with pharmacy about am dose of thyroid meds-not on floor. States will have tech bring up to floor. Will pass on to dayshift.
[2023-10-18] MEDS ORDERED: Thyroid, Desiccated 60 MG TAB PO SCH (07:00)
[2023-10-18 07:05] LABS: CALCIUM 8.5 mg/dL (8.4-10.2); CREATININE, serum 0.55 mg/dL (0.72-1.25); POTASSIUM 3.9 mEq/L (3.5-4.5)
--- NOTE | 2023-10-18 08:18 | NUR ---
PATIENT PLACED IN WHEELCHIAR FROM BED BY THIS RN, 1 PCT AND PATIENT . PATEINT NOW SITITNG UP IN HOME WHEELCHAIR, IVF INFUSING ORDERED, CROWLEY PATENT AND DRAINING. PATIENTS DENIES ANY NEEDS OR COMPLAINTS AT THIS TIME. PATIENT DOES NOT APPEAR TO BE IN ANY PAIN OR ACUTE DISTRESS.
[2023-10-18] MEDS ORDERED: Pantoprazole 40 MG in NS 10 ML IV SCH (09:00)
--- NOTE | 2023-10-18 10:56 | NUR ---
D: Weatherization Director stopped by room on rounds. A: Pt was resting sitting in his chair with family by his side. Pt has no needs right now. P: Weatherization Director informed family that if they needed anything from the cement storage worker area to let their nurse know. Weatherization Director will follow up as needed.
--- NOTE | 2023-10-18 13:09 | NUR ---
Manufacturing Assistant met with patient and his , Preeti (ph#[phone]) to complete initial intake. [place] between [place] and [place] with his , Preeti who is also his primary caregiver. Patient sees Dr. Bartlett for primary care and gets his medications either from [facility] or [facility]. Patient gets tube feeds that are ordered through [facility] and administered by Preeti. Patient has a left that Preeti brought into the hospital and all needed DME at home. Patient requires total assist with all ADLS. Preeti is the primary caregiver and also gets some as needed assistance from their son, Magdiel and privately kennel helper. Patient has DPOA-HC in EMR designating Preeti and their two sons, Justo and Magdiel. Plan is for patient to return home at time of discharge. Discharge Plan; Home with current supports
--- NOTE | 2023-10-18 15:04 | NUR ---
PATIENT SUCCESSFULLY MOVED TO SURGICAL UNIT ROOM 327. WIHT PRESENT
--- NOTE | 2023-10-18 18:12 | NUR ---
in the room with the patient. Assisting with daily cares. Patient had a BM while in the lift and with the assistance of the . VSS. IV CDI. Fluids infusing. Nam intact. No further needs expressed. Call light within reach
--- NOTE | 2023-10-18 21:00 | NUR ---
PATIENT IN WHEELCHAIR AND RESPONSIVE TO 'S VOICE. ACTIVELY DROOLING CLEAR SALIVA. LUNG SOUNDS ARE COARSE BILATERALLY AND SNORING COULD BE HEARD. CROWLEY ACTIVELY DRAINING YELLOW, CLEAR FLUID. PROVIDES ALL PEG TUBE FEEDINGS AND IS A VERY INVOLVED APPLICATION CONSULTANT. VS ARE WNL. MED PASS COMPLETE.
--- NOTE | 2023-10-18 22:00 | NUR ---
RT BEDSIDE PROVIDING NG SUCTIONING
--- NOTE | 2023-10-18 23:38 | NUR ---
CALL PLACED TO HOSPITALIST. PATIENT BREATHING BECOMING MORE LABORED. RENETTA HOSPITALIST TO VISIT CONCERNED AT BEDSIDE. VS ARE STABLE, O2 SAT 100%.
[2023-10-19] VITALS (10 sets, daily range): BP systolic 130–167; BP diastolic 72–83; PULSE 76–89; TEMP 97.4–98.8
[2023-10-19] MEDS ORDERED: Sodium Chloride 3% For Neb Soln 4 ML AMP IH SCH (00:30)
[2023-10-19] MEDS ORDERED: Albuterol/Ipratropium 3 MG-0.5 MG/3 ML Neb Soln IH PRN ×2 (00:45)
[2023-10-19 00:54] LABS: ARTERIAL BLD GAS O2 SATURATION 93.9 % (92-100); ARTERIAL BLD GAS TCO2 CT 24.4; ARTERIAL BLOOD GAS HCO3 23.4 meq/L (22-26); ARTERIAL BLOOD GAS PCO2 34.1 mmHg (35-45); ARTERIAL BLOOD GAS PO2 65.5 mmHg (80-100); ARTERIAL BLOOD GAS pH 7.45 (7.35-7.45)
[2023-10-19 01:20] LABS: BASO % 0.2 % (0.0-2.0); EOS % 0.3 % (0.0-4.0); GRAN # 8.4 K/mm3 (1.4-6.5); GRAN % 74.1 % (42.2-75.2); HEMATOCRIT 37.3 % (42.0-52.0); HEMOGLOBIN 12.6 g/dl (13.5-18.0); LYMPH % 17.5 % (20.0-51.0); MEAN CELL VOLUME 89 fl (80.0-100.0); MEAN CORPUSCULAR HEMOGLOBIN 30 pg (27-31); MEAN CORPUSCULAR HGB CONC 34 g/dl (33.0-37.0); MEAN PLATELET VOLUME 8.5 fl (7.4-10.4); MONO # 0.8 K/mm3 (0.1-0.6); MONO % 6.9 % (1.7-9.3); PLATELET COUNT 197 K/mm3 (130-400); REDCELL DISTRIBUTION WIDTH-CV 13.5 % (11.5-14.5)
[2023-10-19] MEDS ORDERED: EPINEPHrine 0.3 MG/0.3 ML Auto Injector IM ONE (01:30)
[2023-10-19] MEDS ORDERED: methylPREDNISolone Sod Succ 125 MG/2 ML VIAL IV ONE (01:30)
[2023-10-19] MEDS ORDERED: diphenhydrAMINE 50 MG/ML 1 ML VIAL IV ONE (01:30)
[2023-10-19 01:32] LABS: CALCIUM 9.3 mg/dL (8.4-10.2); CREATININE, serum 0.66 mg/dL (0.72-1.25); POTASSIUM 4.5 mEq/L (3.5-4.5)
[2023-10-19] MEDS ORDERED: Albuterol/Ipratropium 3 MG-0.5 MG/3 ML Neb Soln IH SCH (02:00)
--- NOTE | 2023-10-19 02:30 | NUR ---
ADDITIONAL CALL PLACED TO RENETTA. PATIENT'S FACE AND LOWER LIP SWOLLEN. RENETTA TO VISIT PATIENT BEDSIDE AGAIN TO ADDRESS CONCERNS ORDERS PLACED FOR SOLUMEDROL, BENADRYL AND EPI GIVEN, HOWEVER, PATIENT'S REFUSED MEDS FACIAL EDEMA SEEMS TO HAVE RESOLVED WITH POSITIONAL CHANGE. HOSPITALIST BEDSIDE EXPLAINING RISKS OF ANGIOEDEMA AND RED FLAG SYMPTOMS IN THE EVENT THE EDEMA RETURNS. HOSPITALIST HAS SPENT 30 MINUTES CONSULTING WITH PATIENT , SHAZIA.
--- NOTE | 2023-10-19 08:01 | NUR ---
Patient up in personal wheelchair with at the bedside. Alert. VSS. IV CDI, fluids infusing. Peg tube intact. assist with patient cares, calls for assistance as needed. Heel protectors on feet. Call light within reach
[2023-10-19] MEDS ORDERED: Glycopyrrolate 0.2 MG/ML 1 ML VIAL IV SCH (10:30)
[2023-10-19] MEDS ORDERED: Atropine 1% Ophth Soln 2 ML BOTTLE SL PRN (10:45)
[2023-10-19] MEDS ORDERED: FLUCONAZOLE 40 MG/ML PO SCH (11:00)
[2023-10-19] MEDS ORDERED: cefTRIAXone 1 G in Water For Injection,Sterile 10 ML IV SCH (11:15)
--- NOTE | 2023-10-19 17:35 | NUR ---
PT BEING FED, TX REFUSED PER
--- NOTE | 2023-10-19 18:55 | NUR ---
Patient up in the wheelchair, at the bedside. CPAP at the bedside. No further needs expressed. Reported off to DAVIN Jones. Call light within reach
--- NOTE | 2023-10-19 20:03 | NUR ---
CPT HELD AT THIS TIME DUE TO PT EATING AN HOUR AGO AND WANTING TO REPOSITION PT FOR CPT.
--- NOTE | 2023-10-19 21:40 | NUR ---
CALL PLACED TO RT. CPAP APPLIED. PATIENT CURRENTLY TOLERATING WELL.
--- NOTE | 2023-10-19 22:50 | NUR ---
UPON SHIFT ASSESSMENT, JEANETTE WAS IN WHEELCHAIR WITH CERVICAL HEAD SUPPORT FASHIONED BY . SONOROUS BREATHING NOT NOTED AT THIS TIME. VS ARE WNL AND AIRWAY IS PATENT ALTHOUGH COPIOUS SECRETIONS NOTED. FAMILY IS VISITING BEDSIDE WELL.
--- NOTE | 2023-10-19 23:10 | NUR ---
CALLED TO PATIENT ROOM. SHAZIA CONCERNED THAT CPAP MIGHT BE INEFFECTIVE SINCE JEANETTE ALWAYS HAS MOUTH AGAP AND SECRETIONS MUST DRAIN. RT CALL TO ROOM TO ADDRESS CONCERNS. THIS NURSE SUGGESTED ATROPINE, SHAZIA REFUSED. WANTED TO WAIT AND SEE IF CPAP WOULD BE TOLERABLE.
[2023-10-20] VITALS (12 sets, daily range): BP systolic 130–188; BP diastolic 78–91; PULSE 73–97; TEMP 97.1–97.8
--- NOTE | 2023-10-20 01:39 | NUR ---
ROUNDED ON PATIENT, BOTH JEANETTE AND SHAZIA ARE SLEEPING SOUNDLY-JEANETTE ON HIS LEFT SIDE, WITH NO NOTED SONOROUS BREATHING. VS ARE WNL-BP SLIGHTLY HYPERTENSIVE-160'S SYSTOLIC.
--- NOTE | 2023-10-20 03:20 | NUR ---
ROUNDED ON PATIENT. BOTH JEANETTE AND SHAZIA ASLEEP. JEANETTE REMAINS ON LEFT SIDE WITH MINIMAL SECRETIONS DRAINING, CNPI SCORE 0. CPAP NO LONGER ON. NO SONOROUS BREATHING NOTED.
[2023-10-20 06:42] LABS: BASO % 0.4 % (0.0-2.0); EOS # 0.1 K/mm3 (0.0-0.7); EOS % 1.1 % (0.0-4.0); GRAN # 4.9 K/mm3 (1.4-6.5); HEMOGLOBIN 11.8 g/dl (13.5-18.0); LYMPH # 2.6 K/mm3 (1.2-3.4); LYMPH % 30.6 % (20.0-51.0); MEAN CELL VOLUME 90 fl (80.0-100.0); MEAN CORPUSCULAR HEMOGLOBIN 30 pg (27-31); MEAN CORPUSCULAR HGB CONC 34 g/dl (33.0-37.0); MEAN PLATELET VOLUME 8.5 fl (7.4-10.4); MONO # 0.7 K/mm3 (0.1-0.6); MONO % 8.8 % (1.7-9.3); PLATELET COUNT 198 K/mm3 (130-400); RED BLOOD COUNT 3.89 M/mm3 (4.20-5.60); REDCELL DISTRIBUTION WIDTH-CV 13.5 % (11.5-14.5)
--- NOTE | 2023-10-20 06:49 | NUR ---
Per patient's request (Preeti). [place] Thyroid 60mg crushed and left bedsie as she will administer via peg tube feeding.
[2023-10-20 07:03] LABS: CALCIUM 8.8 mg/dL (8.4-10.2); CREATININE, serum 0.62 mg/dL (0.72-1.25)
[2023-10-20 07:06] LABS: HEMATOCRIT 35.1 % (42.0-52.0)
--- NOTE | 2023-10-20 09:48 | NUR ---
PATIENT 3 PERSON ASSIST TO WHEELCHIAR FROM BED (PATIENTS ABLE TO DO THIS INDEPENDENTLY AT HOME WITH ALL HIS HOME ASSISTIVE DEVICES). PATINET NOW UP, EYES OPEN, SITTING UP IN WHEELCHIAR, CROWLEY PATENT AND DRAINING, CALL LIGHT WITHIN REACH. PATINETS AT BEDSIDE. LINENS CHANGED.
--- NOTE | 2023-10-20 16:00 | NUR ---
PATINET WIFES AT BEDSIDE. PATIENT RESTING IN WHEELCHAIR, CROWLEY PATENT, PATIENT APPEARS TO BE IN NO ACUTE DISTRESS.
--- NOTE | 2023-10-20 20:39 | NUR ---
CPT HELD DUE TO FEEDING PT.
--- NOTE | 2023-10-20 20:50 | NUR ---
PT RESTING IN CHAIR. AT BEDSIDE. SCHEDULED MEDS GIVEN PER eMAR. CROWLEY CATHETER IN PLACE DRAINING CLEAR, YELLOW URINE. PT DROOLING. PT DOES NOT APPEAR TO BE IN PAIN. STATES NO CONCERNS AT THIS TIME. CALL LIGHT WITHIN REACH.
--- NOTE | 2023-10-20 23:45 | NUR ---
PT TRANSFERRED FROM CHAIR TO BED X3 WITH CARY LIFT AND 'S ASSISTANCE. PT HAD SMALL, LOOSE STOOL. PT LYING ON RIGHT SIDE SUPPORTED WITH PILLOWS AND PADS. NO FURTHER CONCERNS.
[2023-10-21 00:06] VITALS: BP 148/68
[2023-10-21 00:07] VITALS: BP_SYST 148
[2023-10-21 03:59] VITALS: BP 131/74; PULSE 83; TEMP 97.4
[2023-10-21 04:00] VITALS: BP_SYST 131
--- NOTE | 2023-10-21 05:12 | NUR ---
Agree with shift assessment done by LISA More.
--- NOTE | 2023-10-21 05:53 | NUR ---
PER REQUEST, [place] THYROID 60MG CRUSHED AND LEFT AT BEDSIDE TO BE ADMINISTERED VIA TUBE FEEDING BY .
--- NOTE | 2023-10-21 07:38 | NUR ---
PATIENT APPEARS TO BE ASLEEP, RESTING IN BED. CALL LIGHT WTIHIN REACH. PATIENT APPEARS TO BE IN NO ACUTE DISTRESS, HIS DENIES ANY NEEDS OR COMPLAINTS AT THIS TIME.
[2023-10-21] MEDS ORDERED: CEFDINIR250 MG/5 M PO (08:43)
[2023-10-21] MEDS ORDERED: DIFLUCAN 40M40 MG/ML PO (08:44)
--- NOTE | 2023-10-21 09:09 | NUR ---
SW met with patient's to review Medicare IM form. She is agreeable to discharge and signed form, original on chart, copy to . asking about getting a nasal device for patient's CPAP machine at home. She states patient has had CPAP at home for several years and has face mask which is difficult for patient. SW discussed that patient will most likely require new sleep study but SW will attempt to get information on new supplies. stated that [facility] is provider of CPAP. SW called [facility] and was informed that they only provide oxygen and suction equipment. SW called [facility]. Neither agency has patient on service. AL called Dr. Hardwick office and left message for return call to determine who is CPAP provider. Discussed this with and suggested that she get with PCP for new equipment or possible new sleep study due to length of time since previous study. voiced understanding.
--- NOTE | 2023-10-21 09:30 | NUR ---
PATIENT TRANSFERED TO HIS HOME WHEEL CHAIR BY HIS , THIS RN AND HOME LIFT. PATIENTS CROWLEY REMOVED ORDERED. PATIENTS /DPOA GIVEN DISCHARGE INSTRUCTIONS AND EDUCATIN, VIS REMOVED.
[2023-10-21 09:36] VITALS: BP_SYST 131
--- NOTE | 2023-10-21 10:42 | NUR ---
ROWDY TAKENT HOME VIA HIS HOME WHEELCHIAR BY HIS AND SON.
== END 2023-10-21 10:42 | disposition home or self-care (01) | DRG 871 ==
LOC: COL.ER 12:49 → MEDICAL 14:59 → SURG 10-18 14:55
PROVIDERS: Emergency Medicine; Nurse Practitioner Family; ADMIT Internal Medicine
DX: A41.9 Sepsis, unspecified organism (principal); J18.9 Pneumonia, unspecified organism; R47.01 Aphasia; J98.11 Atelectasis; G47.33 Obstructive sleep apnea (adult) (pediatric); N31.9 Neuromuscular dysfunction of bladder, unspecified; R56.9 Unspecified convulsions; I10 Essential (primary) hypertension; E03.9 Hypothyroidism, unspecified; I48.91 Unspecified atrial fibrillation
CPT/HCPCS: J0696; J0737; J2470; J7030; J7120